=== PATIENT | female | born 1945 | race African-American/Black ===

== ENCOUNTER 2016-10-01 14:19 | Inpatient (IN) | payer MEDICARE, BC ==
[~2016-10-01] VITALS: Ht 160 cm; Wt 60.1 kg
[2016-10-01 15:04] LABS: BASO % 1 % (0-3); EOS # 0.1 x10^3/uL (0.0-0.7); EOS % 1 % (0-3); HEMATOCRIT 38.1 % (36.0-47.0); HEMOGLOBIN 12.7 g/dL (12.0-15.5); LYMPH # 1.1 x10^3/uL (1.0-4.8); LYMPH % 15 % (24-48); MEAN CORPUSCULAR HEMOGLOBIN 28 pg (25-35); MEAN CORPUSCULAR HGB CONC 33 g/dL (31-37); MEAN CORPUSCULAR VOLUME 84 fL (79-100); MONO # 0.6 x10^3/uL (0.0-1.1); MONO % 8 % (0-9); NEUT # 5.5 x10^3uL (1.8-7.7); NEUT % 75 % (31-73); PLATELET COUNT 205 x10^3/uL (140-400); RED BLOOD COUNT 4.56 x10^6/uL (3.50-5.40); RED CELL DISTRIBUTION WIDTH 14.2 % (11.5-14.5); WHITE BLOOD COUNT 7.4 x10^3/uL (4.0-11.0)
[2016-10-01 15:19] LABS: ALBUMIN 3.7 g/dL (3.4-5.0); ALBUMIN/GLOBULIN RATIO 0.8 (1.0-1.7); CALCIUM 9.1 mg/dL (8.5-10.1); CREATININE 0.9 mg/dL (0.6-1.0); GFR 74.5; MAGNESIUM 2.4 mg/dL (1.8-2.4); POTASSIUM 3.7 mmol/L (3.5-5.1); TOTAL BILIRUBIN 0.4 mg/dL (0.2-1.0); TOTAL PROTEIN 8.2 g/dL (6.4-8.2)
--- NOTE | 2016-10-01 15:32 | EKG ---
[address] [address] Test Date: 2016-10-01 Test Time: 14:50:18 Pat Name: DEMARCUS BASURTO Department: Room: Gender: F Mri Supervisor: : 1945 Requested By: AZALEA BRANTLEY Order Number: [id number] Reading MD: Silvino Menjivar Measurements Intervals [place] Rate: 68 P: 54 MO: 188 QRS: -5 QRSD: 78 T: 39 QT: 396 QTc: 426 Interpretive Statements SINUS RHYTHM Electronically Signed On 10-18-2016 9:50:26 CDT by Silvino Menjivar
[2016-10-01] MEDS ORDERED: OMEP40CA5 PO (15:43)
[2016-10-01] MEDS ORDERED: TRIA100A TP (15:43)
[2016-10-01] MEDS ORDERED: SERT50TA PO (15:43)
[2016-10-01] MEDS ORDERED: MIRT15TA3 PO (15:43)
[2016-10-01] MEDS ORDERED: BENA1TAB6 PO (15:43)
[2016-10-01] MEDS ORDERED: SIMV20TA PO (15:43)
[2016-10-01] MEDS ORDERED: DONE5TAB7 PO (15:43)
[2016-10-01] MEDS ORDERED: QUET25TA PO (15:43)
[2016-10-01] MEDS ORDERED: SITA100T PO (15:43)
[2016-10-01 15:48] LABS: BILIRUBIN,URINE NEG (NEG); CLARITY,URINE CLEAR; COLOR,URINE YELLOW; GLUCOSE,URINE NEG (NEG); NITRITE,URINE NEG (NEG); UROBILINOGEN,URINE 0.2 mg/dL (0.2 mg/dL)
[2016-10-01 15:49] LABS: BACTERIA,URINE 0 /HPF (0-FEW); RBC,URINE 0 /HPF (0-2); SQUAMOUS EPITHELIAL CELL,UR OCC /LPF
[2016-10-01] MEDS ORDERED: [UNRECOGNIZED DRUG - OTHER] (15:51)
--- NOTE | 2016-10-01 15:54 | PHYS DOC ---
Past History Past Medical History: Dementia, Diabetes, Hypertension Past Surgical History: Other Alcohol Use: None Drug Use: None Adult General Chief Complaint Chief Complaint: PSYCH EVALUATION HPI HPI Patient is a 70-year-old female brought to the ED by her daughter for [facility] unit clearance. Patient has already been accepted for evaluation and admission to the unit. Reportedly, the patient has had some agitated and aggressive behaviors. She has been thinking that her , who is , has been moving things around in her house. On my evaluation, the patient denies any complaints whatsoever. She denies any pain, denies appetite disturbances, denies GI complaints, denies swelling. Review of Systems Review of Systems Constitutional: Denies fever or chills [] HENT: Denies nasal congestion or sore throat [] Respiratory: Denies cough or shortness of breath [] Cardiovascular: Denies chest pain GI: Denies abdominal pain, nausea, vomiting, bloody stools or diarrhea [] : Denies dysuria or hematuria [] Musculoskeletal: Denies back pain or joint pain [] Integument: Denies rash or skin lesions [] Neurologic: Denies headache, focal weakness or sensory changes [] Allergies Allergies Allergies Coded Allergies Type Severity Reaction Last Updated Verified No Known Drug Allergies 10/01/16 No Physical Exam Physical Exam Constitutional: Well developed, well nourished, no acute distress, non-toxic appearance. Alert, mentating normally, warm and dry. HENT: Normocephalic, atraumatic, bilateral external ears normal, oropharynx moist, nose normal. [] Eyes: conjunctiva normal, no discharge. [] Neck: Normal range of motion, no stridor. [] Cardiovascular:Heart rate regular rhythm, no murmur [] Lungs & Thorax: Bilateral breath sounds clear to auscultation [] Abdomen: Bowel sounds normal, soft, no tenderness, no masses, no pulsatile masses. [] Skin: Warm, dry, no erythema, no rash. [] Extremities: No tenderness, no cyanosis, no clubbing, ROM intact, no edema. [] Neurologic: Alert, normal motor function, normal sensory function, no focal deficits noted. [] Current Patient Data Vital Signs Vital Signs Date Time Temp Pulse Resp B/P (MAP) Pulse Ox O2 Delivery O2 Flow Rate FiO2 10/01/16 14:35 98.3 72 20 98 Room Air Lab Results Laboratory Tests Test 10/01/16 14:20 10/01/16 14:37 10/01/16 15:15 White Blood Count 7.4 x10^3/uL (4.0-11.0) Red Blood Count 4.56 x10^6/uL (3.50-5.40) Hemoglobin 12.7 g/dL (12.0-15.5) Hematocrit 38.1 % (36.0-47.0) Mean Corpuscular Volume 84 fL (79-100) Mean Corpuscular Hemoglobin 28 pg (25-35) Mean Corpuscular Hemoglobin Concent 33 g/dL (31-37) Red Cell Distribution Width 14.2 % (11.5-14.5) Platelet Count 205 x10^3/uL (140-400) Neutrophils (%) (Auto) 75 % (31-73) H Lymphocytes (%) (Auto) 15 % (24-48) L Monocytes (%) (Auto) 8 % (0-9) Eosinophils (%) (Auto) 1 % (0-3) Basophils (%) (Auto) 1 % (0-3) Neutrophils # (Auto) 5.5 x10^3uL (1.8-7.7) Lymphocytes # (Auto) 1.1 x10^3/uL (1.0-4.8) Monocytes # (Auto) 0.6 x10^3/uL (0.0-1.1) Eosinophils # (Auto) 0.1 x10^3/uL (0.0-0.7) Basophils # (Auto) 0.0 x10^3/uL (0.0-0.2) Sodium Level 141 mmol/L (136-145) Potassium Level 3.7 mmol/L (3.5-5.1) Chloride Level 104 mmol/L (98-107) Carbon Dioxide Level 31 mmol/L (21-32) Anion Gap 6 (6-14) Blood Urea Nitrogen 13 mg/dL (7-20) Creatinine 0.9 mg/dL (0.6-1.0) Estimated GFR (Cockcroft-Gault) 74.5 BUN/Creatinine Ratio 14 (6-20) Glucose Level 84 mg/dL (70-99) Calcium Level 9.1 mg/dL (8.5-10.1) Magnesium Level 2.4 mg/dL (1.8-2.4) Total Bilirubin 0.4 mg/dL (0.2-1.0) Aspartate Amino Transferase (AST) 21 U/L (15-37) Alanine Aminotransferase (ALT) 22 U/L (14-59) Alkaline Phosphatase 114 U/L (46-116) Total Protein 8.2 g/dL (6.4-8.2) Albumin 3.7 g/dL (3.4-5.0) Albumin/Globulin Ratio 0.8 (1.0-1.7) L Urine Collection Type Unknown Urine Color Yellow Urine Clarity Clear Urine pH 5.5 Urine Specific [place] 1.025 Urine Protein 30 mg/dl (NEG-TRACE) Urine Glucose (UA) Neg mg/dL (NEG) Urine Ketones (Stick) Neg mg/dL (NEG) Urine Blood Neg (NEG) Urine Nitrite Neg (NEG) Urine Bilirubin Neg (NEG) Urine Urobilinogen Dipstick 0.2 mg/dL (0.2 mg/dL) Urine Leukocyte Esterase Neg (NEG) Urine RBC 0 /HPF (0-2) Urine WBC 1-4 /HPF (0-4) Urine Squamous Epithelial Cells Occ /LPF Urine Bacteria 0 /HPF (0-FEW) Urine Mucus Mod /LPF EKG EKG 12-lead EKG read by me. Sinus rhythm. Heart rate 68. There are no acute ST or T wave changes indicative of ischemia or infarction. No STEMI. No rhythm disturbances. 1450 [] Radiology/Procedures Radiology/Procedures [] Course & Med Decision Making Course & Med Decision Making Pertinent Labs and Imaging studies reviewed. (See chart for details) 70-year-old female comes to the ED for medical clearance for behavioral health. Patient did not display any concerning behaviors in the ED. She rested comfortably and visited with her daughter. She ambulated to the restroom to give us a urine sample. Labs, urinalysis, EKG are within normal limits. Patient is cleared [facility] EMS is here to transport her. [] Dragon Disclaimer Dragon Disclaimer This chart was dictated in whole or in part using Voice Recognition software in a busy, high-work load, and often noisy Emergency Department environment. It may contain unintended and wholly unrecognized errors or omissions. Departure Departure: Impression: Primary Impression: Dementia with behavioral disturbance Disposition: ADMITTED INPATIENT Condition: STABLE Referrals: PCP,UNKNOWN (PCP) AZALEA BRANTLEY MD Oct 01, 2016 15:54
[2016-10-01 16:45] VITALS: BP 168/79
[2016-10-01] MEDS ORDERED: ACETAMINOPHEN 325 MG TABLET PO PRN (17:00)
[2016-10-01] MEDS ORDERED: METHYL SALICYLATE/MENTHOL TOPICAL OINTMENT 29GM TUBE. TP PRN (17:00)
[2016-10-01] MEDS ORDERED: MAGNESIUM HYDROXIDE 2,400 MG/30 ML ORAL.SUSP. PO PRN (17:00)
[2016-10-01] MEDS ORDERED: MAG HYDROX/AL HYDROX/SIMETH 30 ML ORAL.SUSP PO PRN (17:00)
[2016-10-01] MEDS ORDERED: QUET25TA5 PO (17:17)
--- NOTE | 2016-10-01 19:15 | RAD ---
CT HEAD WO CONTRAST dated 10/01/2016 6:44 PM Indication: Mental status change., Change in mental statusChange in mental status. No previous studies for comparison. Comparison: No comparison is available. Technique: Contiguous axial imaging the head was performed from skull base to vertex. One or more of the following individualized dose reduction techniques were utilized for this examination: 1. Automated exposure control 2. Adjustment of the mA and/or kV according to patient size 3. Use of iterative reconstruction technique Findings: Ventricles and sulci are mildly prominent for age. No midline shift or mass effect. Minimal patchy low density in the deep/subcortical periventricular white matter. No hemorrhage or extra-axial collection. Posterior fossa and brainstem unremarkable. Visualized paranasal sinuses and mastoid air cells are clear. No acute calvarial abnormality. IMPRESSION: 1. No evidence of acute intracranial hemorrhage or mass. 2. Mild chronic small vessel ischemic changes and atrophy. Electronically signed by: Maxi Staley MD (10/01/2016 7:12 PM) [facility]
--- NOTE | 2016-10-01 19:54 | PDOC ---
Exam Pradip Demential Exam: Pradip Note: Please also refer to the separate dictated note~for this date of service dictated separately.~Patient seen individually. Discussed the patient with Nursing staff reviewed the chart.~Reviewed interim history and current functioning. Reviewed vital signs,~Labs/ Radiology~and current medications noted below. Continue current treatment with the changes noted in the dictated addendum note Assessment: Vital Signs: Vital Signs Date Time Temp Pulse Resp B/P (MAP) Pulse Ox O2 Delivery O2 Flow Rate FiO2 10/01/16 16:45 97.5 70 18 168/79 (108) 98 10/01/16 14:35 Room Air Labs: Laboratory Tests Test 10/01/16 14:20 10/01/16 14:37 10/01/16 15:15 White Blood Count 7.4 x10^3/uL (4.0-11.0) Red Blood Count 4.56 x10^6/uL (3.50-5.40) Hemoglobin 12.7 g/dL (12.0-15.5) Hematocrit 38.1 % (36.0-47.0) Mean Corpuscular Volume 84 fL (79-100) Mean Corpuscular Hemoglobin 28 pg (25-35) Mean Corpuscular Hemoglobin Concent 33 g/dL (31-37) Red Cell Distribution Width 14.2 % (11.5-14.5) Platelet Count 205 x10^3/uL (140-400) Neutrophils (%) (Auto) 75 % (31-73) H Lymphocytes (%) (Auto) 15 % (24-48) L Monocytes (%) (Auto) 8 % (0-9) Eosinophils (%) (Auto) 1 % (0-3) Basophils (%) (Auto) 1 % (0-3) Neutrophils # (Auto) 5.5 x10^3uL (1.8-7.7) Lymphocytes # (Auto) 1.1 x10^3/uL (1.0-4.8) Monocytes # (Auto) 0.6 x10^3/uL (0.0-1.1) Eosinophils # (Auto) 0.1 x10^3/uL (0.0-0.7) Basophils # (Auto) 0.0 x10^3/uL (0.0-0.2) Sodium Level 141 mmol/L (136-145) Potassium Level 3.7 mmol/L (3.5-5.1) Chloride Level 104 mmol/L (98-107) Carbon Dioxide Level 31 mmol/L (21-32) Anion Gap 6 (6-14) Blood Urea Nitrogen 13 mg/dL (7-20) Creatinine 0.9 mg/dL (0.6-1.0) Estimated GFR (Cockcroft-Gault) 74.5 BUN/Creatinine Ratio 14 (6-20) Glucose Level 84 mg/dL (70-99) Calcium Level 9.1 mg/dL (8.5-10.1) Magnesium Level 2.4 mg/dL (1.8-2.4) Total Bilirubin 0.4 mg/dL (0.2-1.0) Aspartate Amino Transferase (AST) 21 U/L (15-37) Alanine Aminotransferase (ALT) 22 U/L (14-59) Alkaline Phosphatase 114 U/L (46-116) Total Protein 8.2 g/dL (6.4-8.2) Albumin 3.7 g/dL (3.4-5.0) Albumin/Globulin Ratio 0.8 (1.0-1.7) L Urine Collection Type Unknown Urine Color Yellow Urine Clarity Clear Urine pH 5.5 Urine Specific [place] 1.025 Urine Protein 30 mg/dl (NEG-TRACE) Urine Glucose (UA) Neg mg/dL (NEG) Urine Ketones (Stick) Neg mg/dL (NEG) Urine Blood Neg (NEG) Urine Nitrite Neg (NEG) Urine Bilirubin Neg (NEG) Urine Urobilinogen Dipstick 0.2 mg/dL (0.2 mg/dL) Urine Leukocyte Esterase Neg (NEG) Urine RBC 0 /HPF (0-2) Urine WBC 1-4 /HPF (0-4) Urine Squamous Epithelial Cells Occ /LPF Urine Bacteria 0 /HPF (0-FEW) Urine Mucus Mod /LPF Current Medications: Meds: Current Medications Acetaminophen (Tylenol) 650 mg PRN Q6HRS PRN PO PAIN / TEMP; Start 10/01/16 at 17:00 Multi-Ingredient Ointment (Analgesic Bacova) 1 allison PRN QID PRN TP MUSCLE PAIN; Start 10/01/16 at 17:00 Al Hydroxide/Mg Hydroxide (Mylanta Plus Xs) 15 ml PRN AFTMEALHC PRN PO DYSPEPSIA; Start 10/01/16 at 17:00 Magnesium Hydroxide (Milk Of Magnesia) 2,400 mg PRN QHS PRN PO CONSTIPATION; Start 10/01/16 at 17:00 Donepezil HCl (Aricept) 2.5 mg HS PO ; Start 10/01/16 at 21:00; Stop 10/01/16 at 21:00; Status DC Mirtazapine (Remeron) 15 mg HS PO ; Start 10/01/16 at 21:00 Quetiapine Fumarate (SEROquel) 12.5 mg DAILY PO ; Start 10/02/16 at 09:00 Sertraline HCl (Zoloft) 50 mg DAILY PO ; Start 10/02/16 at 09:00 Memantine (Namenda) 5 mg DAILY PO ; Start 10/02/16 at 09:00; Stop 10/05/16 at 08 :59 Memantine (Namenda) 5 mg BID PO ; Start 10/05/16 at 21:00 Donepezil HCl (Aricept) 10 mg DAILY PO ; Start 10/02/16 at 09:00 Olanzapine (ZyPREXA ZYDIS) 2.5 mg PRN Q2HR PRN PO PSYCHOSIS; Start 10/01/16 at 18:45 Active Scripts Active Reported Seroquel (Quetiapine Fumarate) 25 Mg Tablet 12.5 Mg PO DAILY [Hycomine compound] 1 Tab DAILY Kenalog (Triamcinolone Acetonide) 100 Gm Aerosol 1 Allison TP PRN DAILY PRN Januvia (Sitagliptin Phosphate) 100 Mg Tablet 100 Mg PO DAILY Zocor (Simvastatin) 20 Mg Tablet 20 Mg PO HS Zoloft (Sertraline Hcl) 50 Mg Tablet 50 Mg PO DAILY Quetiapine Fumarate 25 Mg Tablet 25 Mg PO HS Omeprazole 40 Mg Capsule.dr 40 Mg PO DAILY Mirtazapine 15 Mg Tablet 15 Mg PO HS Donepezil Hcl 5 Mg Tablet 2.5 Mg PO HS Benazepril-Hctz 20-12.5 Mg Tab (Benazepril/Hydrochlorothiazide) 1 Each Tablet 1 Tab PO DAILY Diagnosis: Problems: (1) Dementia with behavioral disturbance (2) Anxiety disorder (3) Dementia, vascular, with delusions (4) Dementia, vascular, with 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
[2016-10-01] MEDS: MIRTAZAPINE 15 MG TABLET PO SCH (20:44)
[2016-10-01] MEDS ORDERED: DONEPEZIL HCL 5 MG TABLET. PO SCH (21:00)
[2016-10-02 03:21] LABS: HEMOGLOBIN A1C 6.2 % (4.8-5.6); T3 TOTAL 105 ng/dL (71-180); THYROXINE 7.2 ug/dL (4.5-12.0)
--- NOTE | 2016-10-02 03:58 | ACF ---
Admission Criteria Forms PSYCHIATRIC DISORDERS Clinical Indications for Inpatient Care (Place 'X' for any and all applicable criteria): Ongoing inpatient care may be needed for 1 or more of the following(1)(2)(3)(4)( 6)(7)(8): [ ]I. Danger to self or others not manageable at lower level of care. [ ]II. Grave disability (eg, inability to perform self care necessary at lower level of care) [ ]III. Agitation or inappropriate behavior interfering with care for primary condition (eg, attempting to discontinue lines or drains prematurely, unable to cooperate with respiratory care) [x]IV. Severe disability or disorder indicated by ALL of the following: [x]a) Severe behavioral health disorder-related symptoms or condition indicated by 1 or more of the following: [ ]i) Severe problem with cognition, memory, judgment, or impulse control [x]ii) Severe clinical manifestations (eg, hallucinations, delusions, other acute psychotic symptoms, eduardo, extreme agitation or anxiety) [x]b) Patient management at lower level of care is not feasible until acute intervention or modification is initiated. Extended stay beyond goal length of stay for the primary condition may be needed untilALLof the following are present(1)(2)(3)(4)(722)(23): [ ]a) Danger to self or others is absent or manageable at lower level of care [ ]b) Behavior crisis management, including physical or chemical restraints, is required and is not available at a lower level of care. [ ]c) Behavioral symptoms (e.g., agitation, somnolence, inappropriate behavior) are present, and are not manageable at a lower level of care. [ ]d) Patient cannot understand follow-up treatment and crisis plan. [ ]e) Provider and supports are sufficiently available at lower level of care. [ ]f) Patient can participate (e.g., verify absence of plan for harm) and is in needed of monitoring. The original [facility] [employer] [employer] content created by [employer] [employer] has been revised. The portions of the content which have been revised are identified through the use of italic text, and [employer] has neither reviewed nor approved the modified material. All other unmodified content is copyright [facility] [employer]. Please see references footnoted in the original [facility] edition 2015 Admission Criteria Met?: Yes NIKKI HWANG Oct 02, 2016 03:58
[2016-10-02 05:35] VITALS: BP 173/86
--- NOTE | 2016-10-02 05:58 | PDOC1 ---
History of Present Illness Reason for Visit: Abnormal behaviors History of Present Illness Pt sent to [facility] for evaluation of abnormal behaviors. According to the record, she had been increasingly paranoid and acting out towards her daughters. SHe lives by herself and her some time ago. She has a hx of DM , HTN, HPL, and reportedly a distant hx of SDH after a fall. She was examined on rounds and found to be pleasant though confused. SHe is not a reliable historian. Per nursing she has not had any recent issues. Chief Complaint: PSYCH EVALUATION Allergies: Coded Allergies: No Known Drug Allergies (Unverified , 10/01/16) Past Medical History Cardiac: HTN, hyperipidemia Endocrine: Diabetes Past Surgical History: No pertinent history Family History: No pertinent hx Past Social History Smoke: No Alcohol: none Drugs: None Lives: Alone Review of Systems Review Of Systems ROS is unobtainable due to pt's mental state. Allergies: Coded Allergies: No Known Drug Allergies (Unverified , 10/01/16) Medications Current Medications Acetaminophen (Tylenol) 650 mg PRN Q6HRS PRN PO PAIN / TEMP; Start 10/01/16 at 17:00 Multi-Ingredient Ointment (Analgesic [place]) 1 allison PRN QID PRN TP MUSCLE PAIN; Start 10/01/16 at 17:00 Al Hydroxide/Mg Hydroxide (Mylanta Plus Xs) 15 ml PRN AFTMEALHC PRN PO DYSPEPSIA; Start 10/01/16 at 17:00 Magnesium Hydroxide (Milk Of Magnesia) 2,400 mg PRN QHS PRN PO CONSTIPATION; Start 10/01/16 at 17:00 Donepezil HCl (Aricept) 2.5 mg HS PO ; Start 10/01/16 at 21:00; Stop 10/01/16 at 21:00; Status DC Mirtazapine (Remeron) 15 mg HS PO Last administered on 10/01/16t 20:44; Start 10/01/16 at 21:00 Quetiapine Fumarate (SEROquel) 12.5 mg DAILY PO ; Start 10/02/16 at 09:00 Sertraline HCl (Zoloft) 50 mg DAILY PO ; Start 10/02/16 at 09:00 Memantine (Namenda) 5 mg DAILY PO ; Start 10/02/16 at 09:00; Stop 10/05/16 at 08 :59 Memantine (Namenda) 5 mg BID PO ; Start 10/05/16 at 21:00 Donepezil HCl (Aricept) 10 mg DAILY PO ; Start 10/02/16 at 09:00 Olanzapine (ZyPREXA ZYDIS) 2.5 mg PRN Q2HR PRN PO PSYCHOSIS; Start 10/01/16 at 18:45 Active Scripts Active Reported Seroquel (Quetiapine Fumarate) 25 Mg Tablet 12.5 Mg PO DAILY [Hycomine compound] 1 Tab DAILY Kenalog (Triamcinolone Acetonide) 100 Gm Aerosol 1 Allison TP PRN DAILY PRN Januvia (Sitagliptin Phosphate) 100 Mg Tablet 100 Mg PO DAILY Zocor (Simvastatin) 20 Mg Tablet 20 Mg PO HS Zoloft (Sertraline Hcl) 50 Mg Tablet 50 Mg PO DAILY Quetiapine Fumarate 25 Mg Tablet 25 Mg PO HS Omeprazole 40 Mg Capsule.dr 40 Mg PO DAILY Mirtazapine 15 Mg Tablet 15 Mg PO HS Donepezil Hcl 5 Mg Tablet 2.5 Mg PO HS Benazepril-Hctz 20-12.5 Mg Tab (Benazepril/Hydrochlorothiazide) 1 Each Tablet 1 Tab PO DAILY Exam Vital Signs Vital Signs Date Time Temp Pulse Resp B/P (MAP) Pulse Ox O2 Delivery O2 Flow Rate FiO2 10/02/16 05:35 98.1 73 16 173/86 (115) 98 Room Air General Appearance: Alert, Cooperative, No acute distress HEENT: Atraumatic, PERRLA, EOMI, Mucous membr. moist/pink, Other (Neck supple, no JVD, no LAD) Respiratory: Clear to auscultation, Normal air movement Heart: Regular rate, Normal S1, Normal S2, No murmurs Abdominal: Normal bowel sounds, Soft, No tenderness, No hepatospenomegaly Extremities: No edema, Normal pulses Skin: No rashes Neuro: Normal gait, Normal speech, Normal tone, Cranial nerves 3-12 NL Psych/Mental Status: Mental status NL, Mood NL Assessment/Plan Assessment/Plan 1. Dementia w/ behavioral disturbances: Per Dr. Kaur. 2. DM: Continue home meds, follow sugars. 3. HTN: MOnitor vitals, cont home meds. 4. HPL: Cont meds. 5. DVT proph: Not indicated, pt fully ambulatory. COURSE Allergies Coded Allergies Type Severity Reaction Last Updated Verified No Known Drug Allergies 10/01/16 No Laboratory Tests Test 10/01/16 14:20 10/01/16 14:37 10/01/16 14:45 10/01/16 15:15 White Blood Count 7.4 x10^3/uL (4.0-11.0) Red Blood Count 4.56 x10^6/uL (3.50-5.40) Hemoglobin 12.7 g/dL (12.0-15.5) Hematocrit 38.1 % (36.0-47.0) Mean Corpuscular Volume 84 fL (79-100) Mean Corpuscular Hemoglobin 28 pg (25-35) Mean Corpuscular Hemoglobin Concent 33 g/dL (31-37) Red Cell Distribution Width 14.2 % (11.5-14.5) Platelet Count 205 x10^3/uL (140-400) Neutrophils (%) (Auto) 75 % (31-73) Lymphocytes (%) (Auto) 15 % (24-48) Monocytes (%) (Auto) 8 % (0-9) Eosinophils (%) (Auto) 1 % (0-3) Basophils (%) (Auto) 1 % (0-3) Neutrophils # (Auto) 5.5 x10^3uL (1.8-7.7) Lymphocytes # (Auto) 1.1 x10^3/uL (1.0-4.8) Monocytes # (Auto) 0.6 x10^3/uL (0.0-1.1) Eosinophils # (Auto) 0.1 x10^3/uL (0.0-0.7) Basophils # (Auto) 0.0 x10^3/uL (0.0-0.2) Sodium Level 141 mmol/L (136-145) Potassium Level 3.7 mmol/L (3.5-5.1) Chloride Level 104 mmol/L (98-107) Carbon Dioxide Level 31 mmol/L (21-32) Anion Gap 6 (6-14) Blood Urea Nitrogen 13 mg/dL (7-20) Creatinine 0.9 mg/dL (0.6-1.0) Estimated GFR (Cockcroft-Gault) 74.5 BUN/Creatinine Ratio 14 (6-20) Glucose Level 84 mg/dL (70-99) Calcium Level 9.1 mg/dL (8.5-10.1) Magnesium Level 2.4 mg/dL (1.8-2.4) Total Bilirubin 0.4 mg/dL (0.2-1.0) Aspartate Amino Transf (AST/SGOT) 21 U/L (15-37) Alanine Aminotransferase (ALT/SGPT) 22 U/L (14-59) Alkaline Phosphatase 114 U/L (46-116) Total Protein 8.2 g/dL (6.4-8.2) Albumin 3.7 g/dL (3.4-5.0) Albumin/Globulin Ratio 0.8 (1.0-1.7) Hemoglobin A1c 6.2 % (4.8-5.6) Thyroxine (T4) 7.2 ug/dL (4.5-12.0) Total Triiodothyronine 105 ng/dL (71-180) Urine Collection Type Unknown Urine Color Yellow Urine Clarity Clear Urine pH 5.5 Urine Specific [place] 1.025 Urine Protein 30 mg/dl (NEG-TRACE) Urine Glucose (UA) Neg mg/dL (NEG) Urine Ketones (Stick) Neg mg/dL (NEG) Urine Blood Neg (NEG) Urine Nitrite Neg (NEG) Urine Bilirubin Neg (NEG) Urine Urobilinogen Dipstick 0.2 mg/dL (0.2 mg/dL) Urine Leukocyte Esterase Neg (NEG) Urine RBC 0 /HPF (0-2) Urine WBC 1-4 /HPF (0-4) Urine Squamous Epithelial Cells Occ /LPF Urine Bacteria 0 /HPF (0-FEW) Urine Mucus Mod /LPF Current Medications Medications (Trade) Dose Ordered Sig/Hoda Route PRN Reason Start Time Stop Time Status Last Admin Dose Admin Acetaminophen (Tylenol) 650 mg PRN Q6HRS PRN PO PAIN / TEMP 10/01/16 17:00 Multi-Ingredient Ointment (Analgesic [place]) 1 allison PRN QID PRN TP MUSCLE PAIN 10/01/16 17:00 Al Hydroxide/Mg Hydroxide (Mylanta Plus Xs) 15 ml PRN AFTMEALHC PRN PO DYSPEPSIA 10/01/16 17:00 Magnesium Hydroxide (Milk Of Magnesia) 2,400 mg PRN QHS PRN PO CONSTIPATION 10/01/16 17:00 Donepezil HCl (Aricept) 2.5 mg HS PO 10/01/16 21:00 10/01/16 21:00 DC Mirtazapine (Remeron) 15 mg HS PO 10/01/16 21:00 10/01/16 20:44 Quetiapine Fumarate (SEROquel) 12.5 mg DAILY PO 10/02/16 09:00 Sertraline HCl (Zoloft) 50 mg DAILY PO 10/02/16 09:00 Memantine (Namenda) 5 mg DAILY PO 10/02/16 09:00 10/05/16 08:59 Memantine (Namenda) 5 mg BID PO 10/05/16 21:00 Donepezil HCl (Aricept) 10 mg DAILY PO 10/02/16 09:00 Olanzapine (ZyPREXA ZYDIS) 2.5 mg PRN Q2HR PRN PO PSYCHOSIS 10/01/16 18:45 I & O 10/02/16 00:00 Intake Total 360 ml Balance 360 ml Vital Signs Date Time Temp Pulse Resp B/P (MAP) Pulse Ox O2 Delivery O2 Flow Rate FiO2 10/02/16 05:35 98.1 73 16 173/86 (115) [address] HEAD WO CONTRAST dated 10/01/2016 6:44 PM Indication: Mental status change., Change in mental statusChange in mental status. No previous studies for comparison. Comparison: No comparison is available. Technique: Contiguous axial imaging the head was performed from skull base to vertex. One or more of the following individualized dose reduction techniques were utilized for this examination: 1. Automated exposure control 2. Adjustment of the mA and/or kV according to patient size 3. Use of iterative reconstruction technique Findings: Ventricles and sulci are mildly prominent for age. No midline shift or mass effect. Minimal patchy low density in the deep/subcortical periventricular white matter. No hemorrhage or extra-axial collection. Posterior fossa and brainstem unremarkable. Visualized paranasal sinuses and mastoid air cells are clear. No acute calvarial abnormality. IMPRESSION: 1. No evidence of acute intracranial hemorrhage or mass. 2. Mild chronic small vessel ischemic changes and atrophy. FRANCES CARRILLO MD Oct 02, 2016 05:58
[2016-10-02] MEDS: LINAGLIPTIN 5 MG TABLET PO SCH (07:56)
[2016-10-02] MEDS: MEMANTINE 5 MG TABLET. PO SCH (07:56)
[2016-10-02] MEDS: MIRTAZAPINE 15 MG TABLET PO SCH (07:57)
[2016-10-02] MEDS: hydroCHLOROthiazide 12.5 MG CAPSULE PO SCH (07:57)
[2016-10-02] MEDS: LISINOPRIL 20 MG TABLET PO SCH (07:57)
[2016-10-02] MEDS: SERTRALINE 50 MG TABLET. PO SCH (07:58)
[2016-10-02] MEDS: QUEtiapine 25 MG TABLET. PO SCH (07:58)
[2016-10-02] MEDS: DONEPEZIL HCL 10 MG TABLET PO SCH (07:58)
[2016-10-02] MEDS: PANTOPRAZOLE 40 MG TABLET. PO SCH (07:58)
[2016-10-02] MEDS ORDERED: TRIAMCINOLONE ACETONIDE 0.1% TOPICAL CREAM 15GM TUBE. TP PRN (09:00)
[2016-10-02] MEDS ORDERED: NON FORMULARY ITEM (Benazepril/Hydrochlorothiazide (Benazepril-Hctz 20-12.5 Mg Tab) 1 TAB) PO SCH (09:00)
[2016-10-02] MEDS ORDERED: [UNRECOGNIZED DRUG - OTHER] SCH (09:00)
--- NOTE | 2016-10-02 12:08 | HP ---
ADMIT DATE: 10/01/2016 PSYCHIATRIC ADMISSION HISTORY/EVALUATION The patient was seen in the evening of 10/01/2016 for this evaluation and I had previously discussed with the nursing staff regarding the patient's referral for inpatient psychiatric stabilization from primary care physician, Dr. Ambrosio. IDENTIFYING DATA: The patient is a 70-year-old Afro-Surinamese female referred by Dr. Charles her primary care physician on account of increasing confusion and being aggressive, both verbally and physically towards her daughters. She has been delusional, believes her has been moving her purse. She has been paranoid, suspicious, anxious, attacking the daughter, but lunging at her daughter, snatching and scratching the daughter. Symptoms have been worsening for the past several months, much worse in the past few days, resulting in this referral for inpatient psychiatric stabilization due to dangerous, out of control behaviors and failure of outpatient psychiatric interventions. CHIEF COMPLAINT: "They tricked me into coming here." The patient is very angry at her daughters for bringing here. She repeatedly stated during our interview that she cared for her for several years before he since he suffered a subdural hematoma and she resents the fact that her daughters have placed her at this facility and looking at having her in a intermediate. HISTORY OF PRESENT ILLNESS: The patient has a history of aggressive dementia, Alzheimer's vascular type. She has been residing at home in [place], [place] following outpatient with her primary care physician. More recently as noted above, she has been getting paranoid; delusional; suspicious; having sleep and appetite changes; marked aggression towards her daughters consequent to her paranoia. No active suicidal or homicidal ideation. Family feels she will need placement as does the primary care physician according to the information related to me by the nursing staff. No history of bipolar disorder. PAST PSYCHIATRIC HISTORY: As above. MEDICAL HISTORY: Positive for diabetes mellitus, hypertension, hyperlipidemia, history of subdural hematoma consequent to a fall from a chair in 1999. It is unclear to me whether the patient believes that her suffered from a subdural hematoma as her confusion about her own. CT head is unremarkable for any acute changes. DRUG ALLERGIES: Negative. CURRENT PSYCHOTROPICS: Aricept 2.5 mg at bedtime, Remeron 15 mg at bedtime, Zoloft 50 mg a day, Seroquel 12.5 mg in the morning and 25 mg at night. This has previously been discontinued in April and then restarted recently. FAMILY HISTORY: Noncontributory. SOCIAL HISTORY: No alcohol, drug abuse, physical, sexual or elder abuse history is noted. She is not known to be a perpetrator. According to the primary care physician, the patient has never been a smoker. She does have a history of falls. MENTAL STATUS EXAM: The patient was seen individually evening of 10/01/2016. She is oriented to herself and situation, felt the year was 2015, month was October. She was unable to do serial 7s, able to spell world forward and backward with great effort, but accurately. Insight, judgment, recent memory is impaired. Language function intact. Attention span short. She was quite paranoid, suspicious, frequently looking away believing this was a scheme to get her trapped in the hospital and placement which she resented. No active suicidal or homicidal ideation. LABORATORY DATA: Reviewed. REVIEW OF SYSTEMS: No CV, , eye, ENT or pulmonary system symptoms on review. Reliability poor. IMPRESSION: Major neurocognitive disorder, probably vascular, Alzheimer's with depression, delusion, behavioral disturbance; anxiety disorder, unspecified; impulse control disorder, unspecified. Rest as above. PLAN: Admit to the Geropsychiatry Unit at [facility]. I will see the patient daily individually from a psychiatric standpoint. Medical followup per Dr. Ryan/Dr. Villarreal. Continue the patient on her current psychotropics. Increase Aricept to 10 mg a day and start Namenda 5 mg daily, increasing in 3 days to 5 mg twice a day. Consider increasing Zoloft and/or Seroquel or considering Risperdal if psychotic symptoms are prominent and BuSpar for anxiety, Depakote as a mood stabilizer, but we will have to make all those decisions depending on how she does with the initial changes. PATRICK VELAZQUEZ MD DR: VIRGINIE/madeleine JOB#: [id number] / [id number]
[2016-10-02 16:25] VITALS: BP 124/71
[2016-10-02] MEDS: SIMVASTATIN 20 MG TABLET PO SCH (19:46)
--- NOTE | 2016-10-02 23:13 | PDOC ---
Exam Pradip Demential Exam: Pradip Note: Please also refer to the separate dictated note~for this date of service dictated separately.~Patient seen individually. Discussed the patient with Nursing staff reviewed the chart.~Reviewed interim history and current functioning. Reviewed vital signs,~Labs/ Radiology~and current medications noted below. Continue current treatment with the changes noted in the dictated addendum note Assessment: Vital Signs: Vital Signs Date Time Temp Pulse Resp B/P (MAP) Pulse Ox O2 Delivery O2 Flow Rate FiO2 10/02/16 16:25 98.7 71 18 124/71 (88) 99 10/02/16 05:35 Room Air I&O Intake and Output 10/02/16 07:00 Intake Total 480 ml Balance 480 ml Intake Oral 480 ml Labs: Laboratory Tests Test 10/02/16 08:01 Glucose (Fingerstick) 86 mg/dL (70-99) Current Medications: Meds: Current Medications Acetaminophen (Tylenol) 650 mg PRN Q6HRS PRN PO PAIN / TEMP; Start 10/01/16 at 17:00 Multi-Ingredient Ointment (Analgesic [place]) 1 allison PRN QID PRN TP MUSCLE PAIN; Start 10/01/16 at 17:00 Al Hydroxide/Mg Hydroxide (Mylanta Plus Xs) 15 ml PRN AFTMEALHC PRN PO DYSPEPSIA; Start 10/01/16 at 17:00 Magnesium Hydroxide (Milk Of Magnesia) 2,400 mg PRN QHS PRN PO CONSTIPATION; Start 10/01/16 at 17:00 Donepezil HCl (Aricept) 2.5 mg HS PO ; Start 10/01/16 at 21:00; Stop 10/01/16 at 21:00; Status DC Mirtazapine (Remeron) 15 mg HS PO Last administered on 10/02/16 07:57; Start 10/01/16 at 21:00 Quetiapine Fumarate (SEROquel) 12.5 mg DAILY PO Last administered on 10/02/16 07:58; Start 10/02/16 at 09:00 Sertraline HCl (Zoloft) 50 mg DAILY PO Last administered on 10/02/16 07:58; Start 10/02/16 at 09:00 Memantine (Namenda) 5 mg DAILY PO Last administered on 10/02/16 07:56; Start 10/02/16 at 09:00; Stop 10/05/16 at 08:59 Memantine (Namenda) 5 mg BID PO ; Start 10/05/16 at 21:00 Donepezil HCl (Aricept) 10 mg DAILY PO Last administered on 10/02/16 07:58; Start 10/02/16 at 09:00 Olanzapine (ZyPREXA ZYDIS) 2.5 mg PRN Q2HR PRN PO PSYCHOSIS; Start 10/01/16 at 18:45 Simvastatin (Zocor) 20 mg HS PO Last administered on 10/02/16 19:46; Start 02/06 at 21:00 Non-Formulary Medication 1 tab DAILY PO ; Start 10/02/16 at 09:00; Status UNV Pantoprazole Sodium (Protonix) 40 mg DAILYAC PO Last administered on 10/02/16 07:58; Start 10/02/16 at 07:30 Linagliptin (Tradjenta) 5 mg DAILY PO Last administered on 10/02/16 07:56; Start 10/02/16 at 09:00 Triamcinolone Acetonide (Kenalog) 1 allison PRN DAILY PRN TP small amt to ears; Start 10/02/16 at 09:00 Non-Formulary Medication 1 tab DAILY .ROUTE ; Start 10/02/16 at 09:00; Status UNV Lisinopril (Prinivil) 20 mg DAILY PO Last administered on 10/02/16 07:57; Start 10/02/16 at 09:00 Hydrochlorothiazide (Microzide) 12.5 mg DAILY PO Last administered on 07:57; Start 10/02/16 at 09:00 Active Scripts Active Reported Seroquel (Quetiapine Fumarate) 25 Mg Tablet 12.5 Mg PO DAILY [Hycomine compound] 1 Tab DAILY Kenalog (Triamcinolone Acetonide) 100 Gm Aerosol 1 Allison TP PRN DAILY PRN Januvia (Sitagliptin Phosphate) 100 Mg Tablet 100 Mg PO DAILY Zocor (Simvastatin) 20 Mg Tablet 20 Mg PO HS Zoloft (Sertraline Hcl) 50 Mg Tablet 50 Mg PO DAILY Quetiapine Fumarate 25 Mg Tablet 25 Mg PO HS Omeprazole 40 Mg Capsule.dr 40 Mg PO DAILY Mirtazapine 15 Mg Tablet 15 Mg PO HS Donepezil Hcl 5 Mg Tablet 2.5 Mg PO HS Benazepril-Hctz 20-12.5 Mg Tab (Benazepril/Hydrochlorothiazide) 1 Each Tablet 1 Tab PO DAILY Diagnosis: Problems: (1) Dementia with behavioral disturbance (2) Anxiety disorder (3) Dementia, vascular, with delusions (4) Dementia, vascular, with depression (5) Dementia in Alzheimer's disease with delusions (6) Dementia in Alzheimer's disease with depression (7) Impulse control disorder PATRICK VELAZQUEZ MD Oct 02, 2016 23:13
[2016-10-03 06:15] VITALS: BP 167/90
[2016-10-03] MEDS: QUEtiapine 25 MG TABLET. PO SCH (07:49)
[2016-10-03] MEDS: SERTRALINE 50 MG TABLET. PO SCH (07:49)
[2016-10-03] MEDS: MEMANTINE 5 MG TABLET. PO SCH (07:50)
[2016-10-03] MEDS: DONEPEZIL HCL 10 MG TABLET PO SCH (07:50)
[2016-10-03] MEDS: LINAGLIPTIN 5 MG TABLET PO SCH (07:50)
[2016-10-03] MEDS: hydroCHLOROthiazide 12.5 MG CAPSULE PO SCH (07:50)
[2016-10-03] MEDS: LISINOPRIL 20 MG TABLET PO SCH (07:50)
[2016-10-03] MEDS: PANTOPRAZOLE 40 MG TABLET. PO SCH (07:50)
[2016-10-03 17:25] VITALS: BP 117/83
[2016-10-03] MEDS: SIMVASTATIN 20 MG TABLET PO SCH (20:13)
[2016-10-03] MEDS: MIRTAZAPINE 15 MG TABLET PO SCH (20:13)
--- NOTE | 2016-10-03 20:14 | PN ---
DATE: 10/02/2016 This is a late entry for 10/02/2016 and covers elements not covered in my initial note of 10/02/2016. I meet with the patient in the evening of 10/02/2016. The patient remains quite forgetful, then seemed to remember me from the day before. She presents on the surface as if she is much less confused than she truly is. The patient is compliant with her medications. CT head shows atrophy and no acute changes. REVIEW OF SYSTEMS: No CV, , pulmonary, eye, ENT system symptoms on review. MENTAL STATUS EXAM: Oriented to herself. Insight, judgment, recent memory is impaired. Remote is better. Language function intact, attention span short. Mood and affect somewhat anxious, labile. No active psychotic symptoms, suicidal or homicidal ideation. LABORATORY DATA: Reviewed. IMPRESSION: Unchanged from initial note. PLAN: Continue psychotropics mentioned in my initial note. Adjust further as clinically indicated. Aricept was increased. PATRICK VELAZQUEZ MD DR: VIRGINIE/madeleine JOB#: [id number] / [id number]
--- NOTE | 2016-10-03 20:19 | PDOC ---
Exam Pradip Demential Exam: Pradip Note: Please also refer to the separate dictated note~for this date of service dictated separately.~Patient seen individually. Discussed the patient with Nursing staff reviewed the chart.~Reviewed interim history and current functioning. Reviewed vital signs,~Labs/ Radiology~and current medications noted below. Continue current treatment with the changes noted in the dictated addendum note Assessment: Vital Signs: Vital Signs Date Time Temp Pulse Resp B/P (MAP) Pulse Ox O2 Delivery O2 Flow Rate FiO2 10/03/16 17:25 97.7 71 20 117/83 (94) 100 10/02/16 05:35 Room Air I&O Intake and Output 10/03/16 07:00 Intake Total 960 ml Balance 960 ml Intake Oral 960 ml Labs: Laboratory Tests Test 10/03/16 07:19 Glucose (Fingerstick) 80 mg/dL (70-99) Current Medications: Meds: Current Medications Acetaminophen (Tylenol) 650 mg PRN Q6HRS PRN PO PAIN / TEMP; Start 10/01/16 at 17:00 Multi-Ingredient Ointment (Analgesic [place]) 1 allison PRN QID PRN TP MUSCLE PAIN; Start 10/01/16 at 17:00 Al Hydroxide/Mg Hydroxide (Mylanta Plus Xs) 15 ml PRN AFTMEALHC PRN PO DYSPEPSIA; Start 10/01/16 at 17:00 Magnesium Hydroxide (Milk Of Magnesia) 2,400 mg PRN QHS PRN PO CONSTIPATION; Start 10/01/16 at 17:00 Donepezil HCl (Aricept) 2.5 mg HS PO ; Start 10/01/16 at 21:00; Stop 10/01/16 at 21:00; Status DC Mirtazapine (Remeron) 15 mg HS PO Last administered on 10/03/16 20:13; Start 10/01/16 at 21:00 Quetiapine Fumarate (SEROquel) 12.5 mg DAILY PO Last administered on 10/03/16 07:49; Start 10/02/16 at 09:00 Sertraline HCl (Zoloft) 50 mg DAILY PO Last administered on 10/03/16 07:49; Start 10/02/16 at 09:00 Memantine (Namenda) 5 mg DAILY PO Last administered on 10/03/16 07:50; Start 10/02/16 at 09:00; Stop 10/05/16 at 08:59 Memantine (Namenda) 5 mg BID PO ; Start 10/05/16 at 21:00 Donepezil HCl (Aricept) 10 mg DAILY PO Last administered on 10/03/16 07:50; Start 10/02/16 at 09:00 Olanzapine (ZyPREXA ZYDIS) 2.5 mg PRN Q2HR PRN PO PSYCHOSIS; Start 10/01/16 at 18:45 Simvastatin (Zocor) 20 mg HS PO Last administered on 10/03/16 20:13; Start 02/06 at 21:00 Non-Formulary Medication 1 tab DAILY PO ; Start 10/02/16 at 09:00; Status UNV Pantoprazole Sodium (Protonix) 40 mg DAILYAC PO Last administered on 10/03/16 07:50; Start 10/02/16 at 07:30 Linagliptin (Tradjenta) 5 mg DAILY PO Last administered on 10/03/16 07:50; Start 10/02/16 at 09:00 Triamcinolone Acetonide (Kenalog) 1 allison PRN DAILY PRN TP small amt to ears; Start 10/02/16 at 09:00 Non-Formulary Medication 1 tab DAILY .ROUTE ; Start 10/02/16 at 09:00; Status UNV Lisinopril (Prinivil) 20 mg DAILY PO Last administered on 10/03/16 07:50; Start 10/02/16 at 09:00 Hydrochlorothiazide (Microzide) 12.5 mg DAILY PO Last administered on 07:50; Start 10/02/16 at 09:00 Active Scripts Active Reported Seroquel (Quetiapine Fumarate) 25 Mg Tablet 12.5 Mg PO DAILY [Hycomine compound] 1 Tab DAILY Kenalog (Triamcinolone Acetonide) 100 Gm Aerosol 1 Allison TP PRN DAILY PRN Januvia (Sitagliptin Phosphate) 100 Mg Tablet 100 Mg PO DAILY Zocor (Simvastatin) 20 Mg Tablet 20 Mg PO HS Zoloft (Sertraline Hcl) 50 Mg Tablet 50 Mg PO DAILY Quetiapine Fumarate 25 Mg Tablet 25 Mg PO HS Omeprazole 40 Mg Capsule.dr 40 Mg PO DAILY Mirtazapine 15 Mg Tablet 15 Mg PO HS Donepezil Hcl 5 Mg Tablet 2.5 Mg PO HS Benazepril-Hctz 20-12.5 Mg Tab (Benazepril/Hydrochlorothiazide) 1 Each Tablet 1 Tab PO DAILY Diagnosis: Problems: (1) Dementia with behavioral disturbance (2) Anxiety disorder (3) Dementia, vascular, with delusions (4) Dementia, vascular, with depression (5) Dementia in Alzheimer's disease with delusions (6) Dementia in Alzheimer's disease with depression (7) Impulse control disorder PATRICK VELAZQUEZ MD Oct 03, 2016 20:19
[2016-10-04 06:09] VITALS: BP 156/73
[2016-10-04] MEDS: PANTOPRAZOLE 40 MG TABLET. PO SCH (07:43)
[2016-10-04] MEDS: LISINOPRIL 20 MG TABLET PO SCH (08:50)
[2016-10-04] MEDS: hydroCHLOROthiazide 12.5 MG CAPSULE PO SCH (08:50)
[2016-10-04] MEDS: SERTRALINE 50 MG TABLET. PO SCH (08:50)
[2016-10-04] MEDS: DONEPEZIL HCL 10 MG TABLET PO SCH (08:51)
[2016-10-04] MEDS: QUEtiapine 25 MG TABLET. PO SCH (08:51)
[2016-10-04] MEDS: MEMANTINE 5 MG TABLET. PO SCH (08:51)
[2016-10-04] MEDS: LINAGLIPTIN 5 MG TABLET PO SCH (08:51)
[2016-10-04 16:48] VITALS: BP 173/72
--- NOTE | 2016-10-04 20:17 | PDOC ---
Exam Pradip Demential Exam: Pradip Note: Please also refer to the separate dictated note~for this date of service dictated separately.~Patient seen individually. Discussed the patient with Nursing staff reviewed the chart.~Reviewed interim history and current functioning. Reviewed vital signs,~Labs/ Radiology~and current medications noted below. Continue current treatment with the changes noted in the dictated addendum note Assessment: Vital Signs: Vital Signs Date Time Temp Pulse Resp B/P (MAP) Pulse Ox O2 Delivery O2 Flow Rate FiO2 10/04/16 16:48 98.7 72 18 173/72 (105) 99 10/02/16 05:35 Room Air I&O Intake and Output 10/04/16 07:00 Intake Total 1140 ml Balance 1140 ml Intake Oral 1140 ml Labs: Laboratory Tests Test 10/04/16 07:11 10/04/16 07:17 Glucose (Fingerstick) 95 mg/dL (70-99) 128 mg/dL (70-99) H Current Medications: Meds: Current Medications Acetaminophen (Tylenol) 650 mg PRN Q6HRS PRN PO PAIN / TEMP; Start 10/01/16 at 17:00 Multi-Ingredient Ointment (Analgesic [place]) 1 allison PRN QID PRN TP MUSCLE PAIN; Start 10/01/16 at 17:00 Al Hydroxide/Mg Hydroxide (Mylanta Plus Xs) 15 ml PRN AFTMEALHC PRN PO DYSPEPSIA; Start 10/01/16 at 17:00 Magnesium Hydroxide (Milk Of Magnesia) 2,400 mg PRN QHS PRN PO CONSTIPATION; Start 10/01/16 at 17:00 Donepezil HCl (Aricept) 2.5 mg HS PO ; Start 10/01/16 at 21:00; Stop 10/01/16 at 21:00; Status DC Mirtazapine (Remeron) 15 mg HS PO Last administered on 10/03/16 20:13; Start 10/01/16 at 21:00 Quetiapine Fumarate (SEROquel) 12.5 mg DAILY PO Last administered on 10/04/16 08:51; Start 10/02/16 at 09:00 Sertraline HCl (Zoloft) 50 mg DAILY PO Last administered on 10/04/16 08:50; Start 10/02/16 at 09:00 Memantine (Namenda) 5 mg DAILY PO Last administered on 10/04/16 08:51; Start 10/02/16 at 09:00; Stop 10/05/16 at 08:59 Memantine (Namenda) 5 mg BID PO ; Start 10/05/16 at 21:00 Donepezil HCl (Aricept) 10 mg DAILY PO Last administered on 10/04/16 08:51; Start 10/02/16 at 09:00 Olanzapine (ZyPREXA ZYDIS) 2.5 mg PRN Q2HR PRN PO PSYCHOSIS; Start 10/01/16 at 18:45 Simvastatin (Zocor) 20 mg HS PO Last administered on 10/03/16 20:13; Start 02/06 at 21:00 Non-Formulary Medication 1 tab DAILY PO ; Start 10/02/16 at 09:00; Status UNV Pantoprazole Sodium (Protonix) 40 mg DAILYAC PO Last administered on 10/04/16 07:43; Start 10/02/16 at 07:30 Linagliptin (Tradjenta) 5 mg DAILY PO Last administered on 10/04/16 08:51; Start 10/02/16 at 09:00 Triamcinolone Acetonide (Kenalog) 1 allison PRN DAILY PRN TP small amt to ears; Start 10/02/16 at 09:00 Non-Formulary Medication 1 tab DAILY .ROUTE ; Start 10/02/16 at 09:00; Status UNV Lisinopril (Prinivil) 20 mg DAILY PO Last administered on 10/04/16 08:50; Start 10/02/16 at 09:00 Hydrochlorothiazide (Microzide) 12.5 mg DAILY PO Last administered on 08:50; Start 10/02/16 at 09:00 Carbamide Peroxide (Debrox) 5 drop BID AU ; Start 10/04/16 at 21:00 Active Scripts Active Reported Seroquel (Quetiapine Fumarate) 25 Mg Tablet 12.5 Mg PO DAILY [Hycomine compound] 1 Tab DAILY Kenalog (Triamcinolone Acetonide) 100 Gm Aerosol 1 Allison TP PRN DAILY PRN Januvia (Sitagliptin Phosphate) 100 Mg Tablet 100 Mg PO DAILY Zocor (Simvastatin) 20 Mg Tablet 20 Mg PO HS Zoloft (Sertraline Hcl) 50 Mg Tablet 50 Mg PO DAILY Quetiapine Fumarate 25 Mg Tablet 25 Mg PO HS Omeprazole 40 Mg Capsule.dr 40 Mg PO DAILY Mirtazapine 15 Mg Tablet 15 Mg PO HS Donepezil Hcl 5 Mg Tablet 2.5 Mg PO HS Benazepril-Hctz 20-12.5 Mg Tab (Benazepril/Hydrochlorothiazide) 1 Each Tablet 1 Tab PO DAILY Diagnosis: Problems: (1) Dementia with behavioral disturbance (2) Anxiety disorder (3) Dementia, vascular, with delusions (4) Dementia, vascular, with depression (5) Dementia in Alzheimer's disease with delusions (6) Dementia in Alzheimer's disease with depression (7) Impulse control disorder PATRICK VELAZQUEZ MD Oct 04, 2016 20:17
[2016-10-04] MEDS: MIRTAZAPINE 15 MG TABLET PO SCH (20:40)
[2016-10-04] MEDS: SIMVASTATIN 20 MG TABLET PO SCH (20:40)
[2016-10-04] MEDS: CARBAMIDE PEROXIDE 6.5% OTIC SOLUTION 15ML BOTTLE. AU SCH (21:00)
[2016-10-05 05:27] VITALS: BP 170/98
--- NOTE | 2016-10-05 09:13 | PN ---
DATE: 10/03/2016 PSYCHIATRIC PROGRESS NOTE This is a late entry for 10/03/2016, covers elements not covered in my initial note of 10/03/2016. SUBJECTIVE: Met with the patient evening of 10/03/2016. She continues to have significant short term memory deficits, did not remember what she had for supper, once I questioned her evening of 10/03/2016 about an hour after she had had it. She even did not remember meet her previously, even though I have seen her everyday. She slept 5-1/2 hours, not aggressive, however. REVIEW OF SYSTEMS: No CV, , pulmonary, eye, ENT system symptoms on review. Reliability poor. MENTAL STATUS EXAM: Oriented to herself. Insight, judgment, recent and remote memory, attention, concentration, fund of knowledge poor, consistent with her diagnosis mentioned in my initial note. LABORATORY DATA: Reviewed. PLAN: Continue current psychotropics mentioned in my initial note. Adjust further as clinically indicated. MAN Rae VELAZQUEZ MD DR: VIRGINIE/madeleine JOB#: [id number] / [id number]
[2016-10-05] MEDS: LISINOPRIL 20 MG TABLET PO SCH (09:15)
[2016-10-05] MEDS: QUEtiapine 25 MG TABLET. PO SCH (09:15)
[2016-10-05] MEDS: PANTOPRAZOLE 40 MG TABLET. PO SCH (09:15)
[2016-10-05] MEDS: LINAGLIPTIN 5 MG TABLET PO SCH (09:16)
[2016-10-05] MEDS: hydroCHLOROthiazide 12.5 MG CAPSULE PO SCH (09:16)
[2016-10-05] MEDS: DONEPEZIL HCL 10 MG TABLET PO SCH (09:16)
[2016-10-05] MEDS: SERTRALINE 50 MG TABLET. PO SCH (09:16)
[2016-10-05] MEDS: CARBAMIDE PEROXIDE 6.5% OTIC SOLUTION 15ML BOTTLE. AU SCH ×2 (09:21→20:50)
[2016-10-05 16:23] VITALS: BP 132/78
--- NOTE | 2016-10-05 19:51 | PDOC ---
Exam Pradip Demential Exam: Pradip Note: Please also refer to the separate dictated note~for this date of service dictated separately.~Patient seen individually. Discussed the patient with Nursing staff reviewed the chart.~Reviewed interim history and current functioning. Reviewed vital signs,~Labs/ Radiology~and current medications noted below. Continue current treatment with the changes noted in the dictated addendum note Assessment: Vital Signs: Vital Signs Date Time Temp Pulse Resp B/P (MAP) Pulse Ox O2 Delivery O2 Flow Rate FiO2 10/05/16 16:23 97.2 90 20 132/78 (96) 98 10/05/16 05:27 Room Air I&O Intake and Output 10/05/16 07:00 Intake Total 780 ml Balance 780 ml Intake Oral 780 ml Labs: Laboratory Tests Test 10/05/16 07:57 Glucose (Fingerstick) 88 mg/dL (70-99) Current Medications: Meds: Current Medications Acetaminophen (Tylenol) 650 mg PRN Q6HRS PRN PO PAIN / TEMP; Start 10/01/16 at 17:00 Multi-Ingredient Ointment (Analgesic [place]) 1 allison PRN QID PRN TP MUSCLE PAIN; Start 10/01/16 at 17:00 Al Hydroxide/Mg Hydroxide (Mylanta Plus Xs) 15 ml PRN AFTMEALHC PRN PO DYSPEPSIA; Start 10/01/16 at 17:00 Magnesium Hydroxide (Milk Of Magnesia) 2,400 mg PRN QHS PRN PO CONSTIPATION; Start 10/01/16 at 17:00 Donepezil HCl (Aricept) 2.5 mg HS PO ; Start 10/01/16 at 21:00; Stop 10/01/16 at 21:00; Status DC Mirtazapine (Remeron) 15 mg HS PO Last administered on 10/04/16 20:40; Start 10/01/16 at 21:00 Quetiapine Fumarate (SEROquel) 12.5 mg DAILY PO Last administered on 10/05/16 09:15; Start 10/02/16 at 09:00 Sertraline HCl (Zoloft) 50 mg DAILY PO Last administered on 10/05/16 09:16; Start 10/02/16 at 09:00 Memantine (Namenda) 5 mg DAILY PO Last administered on 10/04/16 08:51; Start 10/02/16 at 09:00; Stop 10/05/16 at 08:59; Status DC Memantine (Namenda) 5 mg BID PO ; Start 10/05/16 at 21:00 Donepezil HCl (Aricept) 10 mg DAILY PO Last administered on 10/05/16 09:16; Start 10/02/16 at 09:00 Olanzapine (ZyPREXA ZYDIS) 2.5 mg PRN Q2HR PRN PO PSYCHOSIS; Start 10/01/16 at 18:45 Simvastatin (Zocor) 20 mg HS PO Last administered on 10/04/16 20:40; Start 02/06 at 21:00 Non-Formulary Medication 1 tab DAILY PO ; Start 10/02/16 at 09:00; Status UNV Pantoprazole Sodium (Protonix) 40 mg DAILYAC PO Last administered on 10/05/16 09:15; Start 10/02/16 at 07:30 Linagliptin (Tradjenta) 5 mg DAILY PO Last administered on 10/05/16 09:16; Start 10/02/16 at 09:00 Triamcinolone Acetonide (Kenalog) 1 allison PRN DAILY PRN TP small amt to ears; Start 10/02/16 at 09:00 Non-Formulary Medication 1 tab DAILY .ROUTE ; Start 10/02/16 at 09:00; Status UNV Lisinopril (Prinivil) 20 mg DAILY PO Last administered on 10/05/16 09:15; Start 10/02/16 at 09:00 Hydrochlorothiazide (Microzide) 12.5 mg DAILY PO Last administered on 09:16; Start 10/02/16 at 09:00 Carbamide Peroxide (Debrox) 5 drop BID AU Last administered on 10/05/16 09:21 ; Start 10/04/16 at 21:00 Active Scripts Active Reported Seroquel (Quetiapine Fumarate) 25 Mg Tablet 12.5 Mg PO DAILY [Hycomine compound] 1 Tab DAILY Kenalog (Triamcinolone Acetonide) 100 Gm Aerosol 1 Allison TP PRN DAILY PRN Januvia (Sitagliptin Phosphate) 100 Mg Tablet 100 Mg PO DAILY Zocor (Simvastatin) 20 Mg Tablet 20 Mg PO HS Zoloft (Sertraline Hcl) 50 Mg Tablet 50 Mg PO DAILY Quetiapine Fumarate 25 Mg Tablet 25 Mg PO HS Omeprazole 40 Mg Capsule.dr 40 Mg PO DAILY Mirtazapine 15 Mg Tablet 15 Mg PO HS Donepezil Hcl 5 Mg Tablet 2.5 Mg PO HS Benazepril-Hctz 20-12.5 Mg Tab (Benazepril/Hydrochlorothiazide) 1 Each Tablet 1 Tab PO DAILY Diagnosis: Problems: (1) Dementia with behavioral disturbance (2) Anxiety disorder (3) Dementia, vascular, with delusions (4) Dementia, vascular, with depression (5) Dementia in Alzheimer's disease with delusions (6) Dementia in Alzheimer's disease with depression (7) Impulse control disorder PATRICK VELAZQUEZ MD Oct 05, 2016 19:51
[2016-10-05] MEDS: MIRTAZAPINE 15 MG TABLET PO SCH (20:51)
[2016-10-05] MEDS: SIMVASTATIN 20 MG TABLET PO SCH (20:51)
[2016-10-05] MEDS: MEMANTINE 5 MG TABLET. PO SCH (20:54)
--- NOTE | 2016-10-06 04:11 | PN ---
DATE: 10/04/2016 This late entry for 10/04/2016 covers elements not covered in my initial note of 10/04/2016. SUBJECTIVE: I met with the patient in the evening of 10/04/2016. She has significant short-term memory deficits, did not remember seeing me previously, had forgotten what she had for supper by the time I visited with her shortly after supper. She takes her medications, attending groups. Mood is better. REVIEW OF SYSTEMS: No CV, , pulmonary, eye, ENT system symptoms on review. Reliability poor. MENTAL STATUS EXAM: Oriented to herself and situation. Insight, judgment, recent memory is impaired. Language function intact. Attention span short. Mood and affect showing some improvement. LABORATORY DATA: Reviewed. IMPRESSION: Unchanged from initial note. PLAN: Continue current psychotropics, reviewed drug interactions. Risk/benefit ratio favors no further changes noted from my initial note. PATRICK VELAZQUEZ MD DR: VIRGINIE/madeleine JOB#: [id number] / [id number]
[2016-10-06 06:23] VITALS: BP 105/73
[2016-10-06] MEDS: PANTOPRAZOLE 40 MG TABLET. PO SCH (07:44)
[2016-10-06] MEDS: LINAGLIPTIN 5 MG TABLET PO SCH (08:49)
[2016-10-06] MEDS: DONEPEZIL HCL 10 MG TABLET PO SCH (08:49)
[2016-10-06] MEDS: LISINOPRIL 20 MG TABLET PO SCH (08:49)
[2016-10-06] MEDS: MEMANTINE 5 MG TABLET. PO SCH ×2 (08:49→21:21)
[2016-10-06] MEDS: SERTRALINE 50 MG TABLET. PO SCH (08:49)
[2016-10-06] MEDS: hydroCHLOROthiazide 12.5 MG CAPSULE PO SCH (08:49)
[2016-10-06] MEDS: QUEtiapine 25 MG TABLET. PO SCH (08:50)
[2016-10-06] MEDS: CARBAMIDE PEROXIDE 6.5% OTIC SOLUTION 15ML BOTTLE. AU SCH ×2 (08:53→21:23)
[2016-10-06 16:28] VITALS: BP 163/79
--- NOTE | 2016-10-06 19:48 | PDOC ---
Exam Pradip Demential Exam: Pradip Note: Please also refer to the separate dictated note~for this date of service dictated separately.~Patient seen individually. Discussed the patient with Nursing staff reviewed the chart.~Reviewed interim history and current functioning. Reviewed vital signs,~Labs/ Radiology~and current medications noted below. Continue current treatment with the changes noted in the dictated addendum note Assessment: Vital Signs: Vital Signs Date Time Temp Pulse Resp B/P (MAP) Pulse Ox O2 Delivery O2 Flow Rate FiO2 10/06/16 16:28 97.4 73 20 163/79 (107) 98 10/05/16 05:27 Room Air I&O Intake and Output 10/06/16 07:00 Intake Total 1200 ml Balance 1200 ml Intake Oral 1200 ml # Bowel Movements 1 Labs: Laboratory Tests Test 10/06/16 07:34 Glucose (Fingerstick) 90 mg/dL (70-99) Current Medications: Meds: Current Medications Acetaminophen (Tylenol) 650 mg PRN Q6HRS PRN PO PAIN / TEMP; Start 10/01/16 at 17:00 Multi-Ingredient Ointment (Analgesic [place]) 1 allison PRN QID PRN TP MUSCLE PAIN; Start 10/01/16 at 17:00 Al Hydroxide/Mg Hydroxide (Mylanta Plus Xs) 15 ml PRN AFTMEALHC PRN PO DYSPEPSIA; Start 10/01/16 at 17:00 Magnesium Hydroxide (Milk Of Magnesia) 2,400 mg PRN QHS PRN PO CONSTIPATION; Start 10/01/16 at 17:00 Donepezil HCl (Aricept) 2.5 mg HS PO ; Start 10/01/16 at 21:00; Stop 10/01/16 at 21:00; Status DC Mirtazapine (Remeron) 15 mg HS PO Last administered on 10/05/16 20:51; Start 10/01/16 at 21:00 Quetiapine Fumarate (SEROquel) 12.5 mg DAILY PO Last administered on 10/06/16 08:50; Start 10/02/16 at 09:00 Sertraline HCl (Zoloft) 50 mg DAILY PO Last administered on 10/06/16 08:49; Start 10/02/16 at 09:00 Memantine (Namenda) 5 mg DAILY PO Last administered on 10/04/16 08:51; Start 10/02/16 at 09:00; Stop 10/05/16 at 08:59; Status DC Memantine (Namenda) 5 mg BID PO Last administered on 10/06/16 08:49; Start at 21:00; Stop 10/06/16 at 21:00 Donepezil HCl (Aricept) 10 mg DAILY PO Last administered on 10/06/16 08:49; Start 10/02/16 at 09:00 Olanzapine (ZyPREXA ZYDIS) 2.5 mg PRN Q2HR PRN PO PSYCHOSIS; Start 10/01/16 at 18:45 Simvastatin (Zocor) 20 mg HS PO Last administered on 10/05/16 20:51; Start 02/06 at 21:00 Non-Formulary Medication 1 tab DAILY PO ; Start 10/02/16 at 09:00; Status UNV Pantoprazole Sodium (Protonix) 40 mg DAILYAC PO Last administered on 10/06/16 07:44; Start 10/02/16 at 07:30 Linagliptin (Tradjenta) 5 mg DAILY PO Last administered on 10/06/16 08:49; Start 10/02/16 at 09:00 Triamcinolone Acetonide (Kenalog) 1 allison PRN DAILY PRN TP small amt to ears; Start 10/02/16 at 09:00 Non-Formulary Medication 1 tab DAILY .ROUTE ; Start 10/02/16 at 09:00; Status UNV Lisinopril (Prinivil) 20 mg DAILY PO Last administered on 10/06/16 08:49; Start 10/02/16 at 09:00 Hydrochlorothiazide (Microzide) 12.5 mg DAILY PO Last administered on 08:49; Start 10/02/16 at 09:00 Carbamide Peroxide (Debrox) 5 drop BID AU Last administered on 10/06/16 08:53 ; Start 10/04/16 at 21:00 Memantine (Namenda) 5 mg DAILY PO ; Start 10/07/16 at 09:00; Stop 10/10/16 at 08 :59 Memantine (Namenda) 10 mg DAILY PO ; Start 10/10/16 at 09:00 Active Scripts Active Reported Seroquel (Quetiapine Fumarate) 25 Mg Tablet 12.5 Mg PO DAILY [Hycomine compound] 1 Tab DAILY Kenalog (Triamcinolone Acetonide) 100 Gm Aerosol 1 Allison TP PRN DAILY PRN Januvia (Sitagliptin Phosphate) 100 Mg Tablet 100 Mg PO DAILY Zocor (Simvastatin) 20 Mg Tablet 20 Mg PO HS Zoloft (Sertraline Hcl) 50 Mg Tablet 50 Mg PO DAILY Quetiapine Fumarate 25 Mg Tablet 25 Mg PO HS Omeprazole 40 Mg Capsule.dr 40 Mg PO DAILY Mirtazapine 15 Mg Tablet 15 Mg PO HS Donepezil Hcl 5 Mg Tablet 2.5 Mg PO HS Benazepril-Hctz 20-12.5 Mg Tab (Benazepril/Hydrochlorothiazide) 1 Each Tablet 1 Tab PO DAILY Diagnosis: Problems: (1) Dementia with behavioral disturbance (2) Anxiety disorder (3) Dementia, vascular, with delusions (4) Dementia, vascular, with depression (5) Dementia in Alzheimer's disease with delusions (6) Dementia in Alzheimer's disease with depression (7) Impulse control disorder PATRICK VELAZQUEZ MD Oct 06, 2016 19:48
[2016-10-06] MEDS: SIMVASTATIN 20 MG TABLET PO SCH (21:21)
[2016-10-06] MEDS: MIRTAZAPINE 15 MG TABLET PO SCH (21:21)
[2016-10-07] MEDS ORDERED: CHOL500050 PO (01:19)
[2016-10-07 05:50] VITALS: BP 145/72
--- NOTE | 2016-10-07 07:06 | PN ---
DATE: 10/05/2016 PSYCHIATRIC PROGRESS NOTE This late entry 10/05/2016, covers elements not covered in my initial note of 10/05/2016. SUBJECTIVE: I met with the patient in the evening of 10/05/2016. The patient remains confused, forgetful, but otherwise pleasant, cooperative. Her daughter visited. REVIEW OF SYSTEMS: No CV, , pulmonary, eye, ENT system symptoms on review. Reliability poor. MENTAL STATUS EXAM: Oriented to herself. Insight, judgment, recent and remote memory, attention, concentration, fund of knowledge poor, consistent with her diagnosis. Again, she did not remember me even though I visit with her every day. LABORATORY DATA: Reviewed. IMPRESSION: Unchanged from initial note. PLAN: Continue current psychotropics. Adjust further as clinically indicated. MAN Rae VELAZQUEZ MD DR: VIRGINIE/madeleine JOB#: [id number] / [id number]
[2016-10-07] MEDS: LISINOPRIL 20 MG TABLET PO SCH (08:00)
[2016-10-07] MEDS: hydroCHLOROthiazide 12.5 MG CAPSULE PO SCH (08:00)
[2016-10-07] MEDS: PANTOPRAZOLE 40 MG TABLET. PO SCH (08:00)
[2016-10-07] MEDS: DONEPEZIL HCL 10 MG TABLET PO SCH (08:00)
[2016-10-07] MEDS: SERTRALINE 50 MG TABLET. PO SCH (08:00)
[2016-10-07] MEDS: LINAGLIPTIN 5 MG TABLET PO SCH (08:00)
[2016-10-07] MEDS: QUEtiapine 25 MG TABLET. PO SCH (08:01)
[2016-10-07] MEDS: MEMANTINE 5 MG TABLET. PO SCH (08:02)
[2016-10-07] MEDS: CARBAMIDE PEROXIDE 6.5% OTIC SOLUTION 15ML BOTTLE. AU SCH ×2 (08:02→20:38)
[2016-10-07] MEDS: CHOLECALCIFEROL (VITAMIN D3) 50,000 UNIT CAPSULE PO SCH (15:32)
[2016-10-07 16:05] VITALS: BP 118/77
--- NOTE | 2016-10-07 19:48 | PDOC ---
Exam Pradip Demential Exam: Pradip Note: Please also refer to the separate dictated note~for this date of service dictated separately.~Patient seen individually. Discussed the patient with Nursing staff reviewed the chart.~Reviewed interim history and current functioning. Reviewed vital signs,~Labs/ Radiology~and current medications noted below. Continue current treatment with the changes noted in the dictated addendum note Assessment: Vital Signs: Vital Signs Date Time Temp Pulse Resp B/P (MAP) Pulse Ox O2 Delivery O2 Flow Rate FiO2 10/07/16 16:05 96.8 88 18 118/77 (91) 97 10/05/16 05:27 Room Air I&O Intake and Output 10/07/16 07:00 Intake Total 1320 ml Balance 1320 ml Intake Oral 1320 ml # Voids 2 Labs: Laboratory Tests Test 10/07/16 07:25 Glucose (Fingerstick) 101 mg/dL (70-99) H Current Medications: Meds: Current Medications Acetaminophen (Tylenol) 650 mg PRN Q6HRS PRN PO PAIN / TEMP; Start 10/01/16 at 17:00 Multi-Ingredient Ointment (Analgesic [place]) 1 allison PRN QID PRN TP MUSCLE PAIN; Start 10/01/16 at 17:00 Al Hydroxide/Mg Hydroxide (Mylanta Plus Xs) 15 ml PRN AFTMEALHC PRN PO DYSPEPSIA; Start 10/01/16 at 17:00 Magnesium Hydroxide (Milk Of Magnesia) 2,400 mg PRN QHS PRN PO CONSTIPATION; Start 10/01/16 at 17:00 Donepezil HCl (Aricept) 2.5 mg HS PO ; Start 10/01/16 at 21:00; Stop 10/01/16 at 21:00; Status DC Mirtazapine (Remeron) 15 mg HS PO Last administered on 10/06/16 21:21; Start 10/01/16 at 21:00 Quetiapine Fumarate (SEROquel) 12.5 mg DAILY PO Last administered on 10/07/16 08:01; Start 10/02/16 at 09:00 Sertraline HCl (Zoloft) 50 mg DAILY PO Last administered on 10/07/16 08:00; Start 10/02/16 at 09:00 Memantine (Namenda) 5 mg DAILY PO Last administered on 10/04/16 08:51; Start 10/02/16 at 09:00; Stop 10/05/16 at 08:59; Status DC Memantine (Namenda) 5 mg BID PO Last administered on 10/06/16 21:21; Start at 21:00; Stop 10/06/16 at 21:00; Status DC Donepezil HCl (Aricept) 10 mg DAILY PO Last administered on 10/07/16 08:00; Start 10/02/16 at 09:00 Olanzapine (ZyPREXA ZYDIS) 2.5 mg PRN Q2HR PRN PO PSYCHOSIS Last administered on 10/07/16 15:31; Start 10/01/16 at 18:45 Simvastatin (Zocor) 20 mg HS PO Last administered on 10/06/16 21:21; Start 02/06 at 21:00 Non-Formulary Medication 1 tab DAILY PO ; Start 10/02/16 at 09:00; Status UNV Pantoprazole Sodium (Protonix) 40 mg DAILYAC PO Last administered on 10/07/16 08:00; Start 10/02/16 at 07:30 Linagliptin (Tradjenta) 5 mg DAILY PO Last administered on 10/07/16 08:00; Start 10/02/16 at 09:00 Triamcinolone Acetonide (Kenalog) 1 allison PRN DAILY PRN TP small amt to ears; Start 10/02/16 at 09:00 Non-Formulary Medication 1 tab DAILY .ROUTE ; Start 10/02/16 at 09:00; Status UNV Lisinopril (Prinivil) 20 mg DAILY PO Last administered on 10/07/16 08:00; Start 10/02/16 at 09:00 Hydrochlorothiazide (Microzide) 12.5 mg DAILY PO Last administered on 08:00; Start 10/02/16 at 09:00 Carbamide Peroxide (Debrox) 5 drop BID AU Last administered on 10/07/16 08:02 ; Start 10/04/16 at 21:00 Memantine (Namenda) 5 mg DAILY PO Last administered on 10/07/16 08:02; Start 10/07/16 at 09:00; Stop 8/20/17 at 08:59 Memantine (Namenda) 10 mg DAILY PO ; Start 10/10/16 at 09:00 Vitamin D (Vitamin D3) 50,000 unit WEEKLY PO Last administered on 10/07/16t 15: 32; Start 10/07/16 at 17:00 Active Scripts Active Reported Seroquel (Quetiapine Fumarate) 25 Mg Tablet 12.5 Mg PO DAILY [Hycomine compound] 1 Tab DAILY Kenalog (Triamcinolone Acetonide) 100 Gm Aerosol 1 Allison TP PRN DAILY PRN Januvia (Sitagliptin Phosphate) 100 Mg Tablet 100 Mg PO DAILY Zocor (Simvastatin) 20 Mg Tablet 20 Mg PO HS Zoloft (Sertraline Hcl) 50 Mg Tablet 50 Mg PO DAILY Quetiapine Fumarate 25 Mg Tablet 25 Mg PO HS Omeprazole 40 Mg Capsule.dr 40 Mg PO DAILY Mirtazapine 15 Mg Tablet 15 Mg PO HS Donepezil Hcl 5 Mg Tablet 2.5 Mg PO HS Benazepril-Hctz 20-12.5 Mg Tab (Benazepril/Hydrochlorothiazide) 1 Each Tablet 1 Tab PO DAILY Diagnosis: Problems: (1) Dementia with behavioral disturbance (2) Anxiety disorder (3) Dementia, vascular, with delusions (4) Dementia, vascular, with depression (5) Dementia in Alzheimer's disease with delusions (6) Dementia in Alzheimer's disease with depression (7) Impulse control disorder PATRICK VELAZQUEZ MD Oct 07, 2016 19:48
[2016-10-07] MEDS: MIRTAZAPINE 15 MG TABLET PO SCH (20:38)
[2016-10-07] MEDS: SIMVASTATIN 20 MG TABLET PO SCH (20:38)
--- NOTE | 2016-10-07 23:31 | PN ---
DATE: 10/06/2016 This late entry 10/06/2016 covers elements not covered in my initial note. I met with the patient evening of 10/06/2016. The patient's daughter visited her and remarked her sometimes. The patient is incontinent of bowel or bladder, but has not shared this with anyone else. She slept 7 and quarter hours the previous evening. Remains confused, forgetful, significant short term memory deficits. REVIEW OF SYSTEMS: No CV, , pulmonary, eye, ENT system symptoms on review. Reliability poor. MENTAL STATUS EXAM: Oriented to herself. Insight, judgment, recent and remote memory, attention, concentration, fund of knowledge poor, consistent with her diagnosis. She is pleasant, smiling, oblivious of her surroundings as I met with her individually. LABORATORY DATA: Reviewed. IMPRESSION: Unchanged from initial note. PLAN: Namenda is currently at 5 mg twice a day and once she has been on this for 3 days, we will increase it to 5 mg in the morning, 10 mg in the evening, and 3 days later to 10 mg twice a day. Maintain rest unchanged from initial note. Review drug interactions. Risk/benefit ratio favors no further change as of now. PATRICK VELAZQUEZ MD DR: VIRGINIE/madeleine JOB#: [id number] / [id number]
[2016-10-08 06:03] VITALS: BP 127/86
[2016-10-08] MEDS: SERTRALINE 50 MG TABLET. PO SCH (07:35)
[2016-10-08] MEDS: MEMANTINE 5 MG TABLET. PO SCH (07:35)
[2016-10-08] MEDS: DONEPEZIL HCL 10 MG TABLET PO SCH (07:35)
[2016-10-08] MEDS: LISINOPRIL 20 MG TABLET PO SCH (07:35)
[2016-10-08] MEDS: LINAGLIPTIN 5 MG TABLET PO SCH (07:35)
[2016-10-08] MEDS: PANTOPRAZOLE 40 MG TABLET. PO SCH (07:35)
[2016-10-08] MEDS: hydroCHLOROthiazide 12.5 MG CAPSULE PO SCH (07:36)
[2016-10-08] MEDS: QUEtiapine 25 MG TABLET. PO SCH (07:36)
[2016-10-08] MEDS: CARBAMIDE PEROXIDE 6.5% OTIC SOLUTION 15ML BOTTLE. AU SCH ×2 (07:37→19:41)
[2016-10-08 16:33] VITALS: BP 122/71
[2016-10-08] MEDS: SIMVASTATIN 20 MG TABLET PO SCH (19:41)
[2016-10-08] MEDS: MIRTAZAPINE 15 MG TABLET PO SCH (19:41)
--- NOTE | 2016-10-08 19:53 | PDOC ---
Exam Pradip Demential Exam: Pradip Note: Please also refer to the separate dictated note~for this date of service dictated separately.~Patient seen individually. Discussed the patient with Nursing staff reviewed the chart.~Reviewed interim history and current functioning. Reviewed vital signs,~Labs/ Radiology~and current medications noted below. Continue current treatment with the changes noted in the dictated addendum note Assessment: Vital Signs: Vital Signs Date Time Temp Pulse Resp B/P (MAP) Pulse Ox O2 Delivery O2 Flow Rate FiO2 10/08/16 16:33 98.5 78 18 122/71 (88) 98 10/05/16 05:27 Room Air I&O Intake and Output 10/08/16 07:00 Intake Total 1800 ml Balance 1800 ml Intake Oral 1800 ml # Voids 1 Labs: Laboratory Tests Test 10/08/16 07:43 Glucose (Fingerstick) 84 mg/dL (70-99) Current Medications: Meds: Current Medications Acetaminophen (Tylenol) 650 mg PRN Q6HRS PRN PO PAIN / TEMP; Start 10/01/16 at 17:00 Multi-Ingredient Ointment (Analgesic [place]) 1 allison PRN QID PRN TP MUSCLE PAIN; Start 10/01/16 at 17:00 Al Hydroxide/Mg Hydroxide (Mylanta Plus Xs) 15 ml PRN AFTMEALHC PRN PO DYSPEPSIA; Start 10/01/16 at 17:00 Magnesium Hydroxide (Milk Of Magnesia) 2,400 mg PRN QHS PRN PO CONSTIPATION; Start 10/01/16 at 17:00 Donepezil HCl (Aricept) 2.5 mg HS PO ; Start 10/01/16 at 21:00; Stop 10/01/16 at 21:00; Status DC Mirtazapine (Remeron) 15 mg HS PO Last administered on 10/08/16 19:41; Start 10/01/16 at 21:00 Quetiapine Fumarate (SEROquel) 12.5 mg DAILY PO Last administered on 10/08/16 07:36; Start 10/02/16 at 09:00 Sertraline HCl (Zoloft) 50 mg DAILY PO Last administered on 10/08/16 07:35; Start 10/02/16 at 09:00 Memantine (Namenda) 5 mg DAILY PO Last administered on 10/04/16 08:51; Start 10/02/16 at 09:00; Stop 10/05/16 at 08:59; Status DC Memantine (Namenda) 5 mg BID PO Last administered on 10/06/16 21:21; Start at 21:00; Stop 10/06/16 at 21:00; Status DC Donepezil HCl (Aricept) 10 mg DAILY PO Last administered on 10/08/16 07:35; Start 10/02/16 at 09:00 Olanzapine (ZyPREXA ZYDIS) 2.5 mg PRN Q2HR PRN PO PSYCHOSIS Last administered on 10/07/16 15:31; Start 10/01/16 at 18:45 Simvastatin (Zocor) 20 mg HS PO Last administered on 10/08/16 19:41; Start 02/06 at 21:00 Non-Formulary Medication 1 tab DAILY PO ; Start 10/02/16 at 09:00; Status UNV Pantoprazole Sodium (Protonix) 40 mg DAILYAC PO Last administered on 10/08/16 07:35; Start 10/02/16 at 07:30 Linagliptin (Tradjenta) 5 mg DAILY PO Last administered on 10/08/16 07:35; Start 10/02/16 at 09:00 Triamcinolone Acetonide (Kenalog) 1 allison PRN DAILY PRN TP small amt to ears; Start 10/02/16 at 09:00 Non-Formulary Medication 1 tab DAILY .ROUTE ; Start 10/02/16 at 09:00; Status UNV Lisinopril (Prinivil) 20 mg DAILY PO Last administered on 10/08/16 07:35; Start 10/02/16 at 09:00 Hydrochlorothiazide (Microzide) 12.5 mg DAILY PO Last administered on 07:36; Start 10/02/16 at 09:00 Carbamide Peroxide (Debrox) 5 drop BID AU Last administered on 10/08/16 19:41 ; Start 10/04/16 at 21:00 Memantine (Namenda) 5 mg DAILY PO Last administered on 10/08/16 07:35; Start 10/07/16 at 09:00; Stop 10/10/16 at 08:59 Memantine (Namenda) 10 mg DAILY PO ; Start 10/10/16 at 09:00 Vitamin D (Vitamin D3) 50,000 unit WEEKLY PO Last administered on 10/07/16t 15: 32; Start 10/07/16 at 17:00 Active Scripts Active Reported Seroquel (Quetiapine Fumarate) 25 Mg Tablet 12.5 Mg PO DAILY [Hycomine compound] 1 Tab DAILY Kenalog (Triamcinolone Acetonide) 100 Gm Aerosol 1 Allison TP PRN DAILY PRN Januvia (Sitagliptin Phosphate) 100 Mg Tablet 100 Mg PO DAILY Zocor (Simvastatin) 20 Mg Tablet 20 Mg PO HS Zoloft (Sertraline Hcl) 50 Mg Tablet 50 Mg PO DAILY Quetiapine Fumarate 25 Mg Tablet 25 Mg PO HS Omeprazole 40 Mg Capsule.dr 40 Mg PO DAILY Mirtazapine 15 Mg Tablet 15 Mg PO HS Donepezil Hcl 5 Mg Tablet 2.5 Mg PO HS Benazepril-Hctz 20-12.5 Mg Tab (Benazepril/Hydrochlorothiazide) 1 Each Tablet 1 Tab PO DAILY Diagnosis: Problems: (1) Dementia with behavioral disturbance (2) Anxiety disorder (3) Dementia, vascular, with delusions (4) Dementia, vascular, with depression (5) Dementia in Alzheimer's disease with delusions (6) Dementia in Alzheimer's disease with depression (7) Impulse control disorder PATRICK VELAZQUEZ MD Oct 08, 2016 19:53
--- NOTE | 2016-10-09 02:07 | PN ---
DATE: This is a late entry for 10/07/2016 and covers elements not covered in my initial note of 10/07/2016. SUBJECTIVE: The patient was staffed with treatment team meeting with the entire team morning of 10/07/2016, seen individually evening of 10/07/2016. At the treatment team meeting, reviewed the patient's history, family's perception, the patient will need a higher level of care than living alone by herself. Reviewed her past work history. She remains confused, forgetful. CT head shows atrophy, small vessel ischemic changes. REVIEW OF SYSTEMS: No CV, , pulmonary, eye, ENT system symptoms on review. MENTAL STATUS EXAM: Oriented to herself, pleasant, cooperative, but quite forgetful, did not remember me even though I have seen her every day, did not remember what she had for supper as I met with her the evening of 10/07/2016. Insight, judgment, recent memory is impaired. Language function intact. Attention span short. Mood and affect is improved. IMPRESSION: Unchanged from initial note. PLAN: Continue current psychotropics. Reviewed drug interactions, risk and benefit ratio and adjust further as clinically indicated. MAN Rae VELAZQUEZ MD DR: VIRGINIE/madeleine JOB#: [id number] / [id number]
[2016-10-09 06:05] VITALS: BP 171/76
[2016-10-09] MEDS: MEMANTINE 5 MG TABLET. PO SCH (07:31)
[2016-10-09] MEDS: hydroCHLOROthiazide 12.5 MG CAPSULE PO SCH (07:31)
[2016-10-09] MEDS: LISINOPRIL 20 MG TABLET PO SCH (07:31)
[2016-10-09] MEDS: LINAGLIPTIN 5 MG TABLET PO SCH (07:31)
[2016-10-09] MEDS: DONEPEZIL HCL 10 MG TABLET PO SCH (07:32)
[2016-10-09] MEDS: QUEtiapine 25 MG TABLET. PO SCH (07:32)
[2016-10-09] MEDS: PANTOPRAZOLE 40 MG TABLET. PO SCH (07:32)
[2016-10-09] MEDS: CARBAMIDE PEROXIDE 6.5% OTIC SOLUTION 15ML BOTTLE. AU SCH ×2 (07:32→20:21)
[2016-10-09] MEDS: SERTRALINE 50 MG TABLET. PO SCH (07:32)
[2016-10-09 15:47] VITALS: BP 160/92
--- NOTE | 2016-10-09 19:52 | PN ---
DATE: 10/08/2016 This late entry, 10/08/2016, covers elements not covered in my initial note of 10/08/2016. SUBJECTIVE: I met with the patient in the evening of 10/08/2016. The patient remains confused, but otherwise wandering, calm, and cooperative. She again did not remember me when I met with her the evening of 10/08/2016 even though I had seen her every day. She did not remember what she had for supper sometime after she had finished supper, but has very pleasant demeanor about her, less frustrated when she recognizes her memory deficits. This is an improvement from when she was admitted. I returned a telephone call from the patient's daughter, Eugenia Olmos, area code [phone]. Daughter had many questions about the patient's diagnosis at this stage of her dementia. Recommendations for placement post-discharge. Daughter is planning to give up her job and move closer to her mother and be available to her mother 24 hours a day and she wondered if this would be appropriate or assisted living. We will just have to see how she does with adjustments of her psychotropics. I explained to the daughter that memory is going to progressively worsen but the agitation, mood lability, misperceptions of her surrounding should improve with psychotropics. Daughter will continue to have conversations about this with the social service staff. REVIEW OF SYSTEMS: No CV, , pulmonary, eye, ENT system symptoms on review. Reliability poor. MENTAL STATUS EXAMINATION: Oriented to herself. Insight, judgment, recent and remote memory, attention, concentration, fund of knowledge poor consistent with her diagnosis mentioned in my initial note. LABORATORY DATA: Reviewed. PLAN: Continue psychotropics mentioned in my initial note. May increase Zoloft in due course. Namenda is being adjusted gradually. Continue Aricept, Remeron, and Seroquel for now. PATRICK VELAZQUEZ MD DR: VIRGINIE/madeleine JOB#: [id number] / [id number]
[2016-10-09] MEDS: MIRTAZAPINE 15 MG TABLET PO SCH (20:21)
[2016-10-09] MEDS: SIMVASTATIN 20 MG TABLET PO SCH (20:21)
--- NOTE | 2016-10-09 23:18 | PDOC ---
Exam Pradip Demential Exam: Pradip Note: Please also refer to the separate dictated note~for this date of service dictated separately.~Patient seen individually. Discussed the patient with Nursing staff reviewed the chart.~Reviewed interim history and current functioning. Reviewed vital signs,~Labs/ Radiology~and current medications noted below. Continue current treatment with the changes noted in the dictated addendum note Assessment: Vital Signs: Vital Signs Date Time Temp Pulse Resp B/P (MAP) Pulse Ox O2 Delivery O2 Flow Rate FiO2 10/09/16 15:47 97.3 87 18 160/92 (114) 98 10/09/16 06:05 Room Air I&O Intake and Output 10/09/16 07:00 Intake Total 1380 ml Balance 1380 ml Intake Oral 1380 ml Labs: Laboratory Tests Test 10/09/16 07:20 Glucose (Fingerstick) 81 mg/dL (70-99) Current Medications: Meds: Current Medications Acetaminophen (Tylenol) 650 mg PRN Q6HRS PRN PO PAIN / TEMP; Start 10/01/16 at 17:00 Multi-Ingredient Ointment (Analgesic [place]) 1 allison PRN QID PRN TP MUSCLE PAIN; Start 10/01/16 at 17:00 Al Hydroxide/Mg Hydroxide (Mylanta Plus Xs) 15 ml PRN AFTMEALHC PRN PO DYSPEPSIA; Start 10/01/16 at 17:00 Magnesium Hydroxide (Milk Of Magnesia) 2,400 mg PRN QHS PRN PO CONSTIPATION; Start 10/01/16 at 17:00 Donepezil HCl (Aricept) 2.5 mg HS PO ; Start 10/01/16 at 21:00; Stop 10/01/16 at 21:00; Status DC Mirtazapine (Remeron) 15 mg HS PO Last administered on 10/09/16 20:21; Start 10/01/16 at 21:00 Quetiapine Fumarate (SEROquel) 12.5 mg DAILY PO Last administered on 10/09/16 07:32; Start 10/02/16 at 09:00 Sertraline HCl (Zoloft) 50 mg DAILY PO Last administered on 10/09/16 07:32; Start 10/02/16 at 09:00 Memantine (Namenda) 5 mg DAILY PO Last administered on 10/04/16 08:51; Start 10/02/16 at 09:00; Stop 10/05/16 at 08:59; Status DC Memantine (Namenda) 5 mg BID PO Last administered on 10/06/16 21:21; Start at 21:00; Stop 10/06/16 at 21:00; Status DC Donepezil HCl (Aricept) 10 mg DAILY PO Last administered on 10/09/16 07:32; Start 10/02/16 at 09:00 Olanzapine (ZyPREXA ZYDIS) 2.5 mg PRN Q2HR PRN PO PSYCHOSIS Last administered on 10/09/16 14:20; Start 10/01/16 at 18:45 Simvastatin (Zocor) 20 mg HS PO Last administered on 10/09/16 20:21; Start 02/06 at 21:00 Non-Formulary Medication 1 tab DAILY PO ; Start 10/02/16 at 09:00; Status UNV Pantoprazole Sodium (Protonix) 40 mg DAILYAC PO Last administered on 10/09/16 07:32; Start 10/02/16 at 07:30 Linagliptin (Tradjenta) 5 mg DAILY PO Last administered on 10/09/16 07:31; Start 10/02/16 at 09:00 Triamcinolone Acetonide (Kenalog) 1 allison PRN DAILY PRN TP small amt to ears; Start 10/02/16 at 09:00 Non-Formulary Medication 1 tab DAILY .ROUTE ; Start 10/02/16 at 09:00; Status UNV Lisinopril (Prinivil) 20 mg DAILY PO Last administered on 10/09/16 07:31; Start 10/02/16 at 09:00 Hydrochlorothiazide (Microzide) 12.5 mg DAILY PO Last administered on 07:31; Start 10/02/16 at 09:00 Carbamide Peroxide (Debrox) 5 drop BID AU Last administered on 10/09/16 20:21 ; Start 10/04/16 at 21:00 Memantine (Namenda) 5 mg DAILY PO Last administered on 10/09/16 07:31; Start 10/07/16 at 09:00; Stop 10/10/16 at 08:59 Memantine (Namenda) 10 mg DAILY PO ; Start 10/10/16 at 09:00 Vitamin D (Vitamin D3) 50,000 unit WEEKLY PO Last administered on 10/07/16t 15: 32; Start 10/07/16 at 17:00 Active Scripts Active Reported Seroquel (Quetiapine Fumarate) 25 Mg Tablet 12.5 Mg PO DAILY [Hycomine compound] 1 Tab DAILY Kenalog (Triamcinolone Acetonide) 100 Gm Aerosol 1 Allison TP PRN DAILY PRN Januvia (Sitagliptin Phosphate) 100 Mg Tablet 100 Mg PO DAILY Zocor (Simvastatin) 20 Mg Tablet 20 Mg PO HS Zoloft (Sertraline Hcl) 50 Mg Tablet 50 Mg PO DAILY Quetiapine Fumarate 25 Mg Tablet 25 Mg PO HS Omeprazole 40 Mg Capsule.dr 40 Mg PO DAILY Mirtazapine 15 Mg Tablet 15 Mg PO HS Donepezil Hcl 5 Mg Tablet 2.5 Mg PO HS Benazepril-Hctz 20-12.5 Mg Tab (Benazepril/Hydrochlorothiazide) 1 Each Tablet 1 Tab PO DAILY Diagnosis: Problems: (1) Dementia with behavioral disturbance (2) Anxiety disorder (3) Dementia, vascular, with delusions (4) Dementia, vascular, with depression (5) Dementia in Alzheimer's disease with delusions (6) Dementia in Alzheimer's disease with depression (7) Impulse control disorder PATRICK VELAZQUEZ MD Oct 09, 2016 23:18
[2016-10-10 05:39] VITALS: BP 145/73
[2016-10-10] MEDS: hydroCHLOROthiazide 12.5 MG CAPSULE PO SCH (07:27)
[2016-10-10] MEDS: CARBAMIDE PEROXIDE 6.5% OTIC SOLUTION 15ML BOTTLE. AU SCH ×2 (07:27→21:07)
[2016-10-10] MEDS: DONEPEZIL HCL 10 MG TABLET PO SCH (07:28)
[2016-10-10] MEDS: QUEtiapine 25 MG TABLET. PO SCH (07:28)
[2016-10-10] MEDS: PANTOPRAZOLE 40 MG TABLET. PO SCH (07:28)
[2016-10-10] MEDS: LINAGLIPTIN 5 MG TABLET PO SCH (07:28)
[2016-10-10] MEDS: LISINOPRIL 20 MG TABLET PO SCH (07:28)
[2016-10-10] MEDS: SERTRALINE 50 MG TABLET. PO SCH (07:28)
[2016-10-10] MEDS: MEMANTINE 10 MG TABLET. PO SCH (07:31)
[2016-10-10 08:10] LABS: HEMATOCRIT 37.3 % (36.0-47.0); HEMOGLOBIN 12.5 g/dL (12.0-15.5); RED BLOOD COUNT 4.5 x10^6/uL (3.50-5.40); RED CELL DISTRIBUTION WIDTH 14.1 % (11.5-14.5); WHITE BLOOD COUNT 7.3 x10^3/uL (4.0-11.0)
[2016-10-10 08:26] LABS: ALBUMIN 3.4 g/dL (3.4-5.0); ALBUMIN/GLOBULIN RATIO 0.8 (1.0-1.7); CALCIUM 8.9 mg/dL (8.5-10.1); GFR 65.9; MAGNESIUM 2.1 mg/dL (1.8-2.4); TOTAL BILIRUBIN 0.3 mg/dL (0.2-1.0); TOTAL PROTEIN 7.6 g/dL (6.4-8.2)
[2016-10-10 16:14] VITALS: BP 148/68
--- NOTE | 2016-10-10 19:48 | PDOC ---
Exam Pradip Demential Exam: Pradip Note: Please also refer to the separate dictated note~for this date of service dictated separately.~Patient seen individually. Discussed the patient with Nursing staff reviewed the chart.~Reviewed interim history and current functioning. Reviewed vital signs,~Labs/ Radiology~and current medications noted below. Continue current treatment with the changes noted in the dictated addendum note Assessment: Vital Signs: Vital Signs Date Time Temp Pulse Resp B/P (MAP) Pulse Ox O2 Delivery O2 Flow Rate FiO2 10/10/16 16:14 97.4 76 18 148/68 (94) 97 10/10/16 05:39 Room Air I&O Intake and Output 10/10/16 07:00 Intake Total 840 ml Balance 840 ml Intake Oral 840 ml Labs: Laboratory Tests Test 10/10/16 07:17 10/10/16 07:31 Glucose (Fingerstick) 86 mg/dL (70-99) White Blood Count 7.3 x10^3/uL (4.0-11.0) Red Blood Count 4.50 x10^6/uL (3.50-5.40) Hemoglobin 12.5 g/dL (12.0-15.5) Hematocrit 37.3 % (36.0-47.0) Mean Corpuscular Volume 83 fL (79-100) Mean Corpuscular Hemoglobin 28 pg (25-35) Mean Corpuscular Hemoglobin Concent 34 g/dL (31-37) Red Cell Distribution Width 14.1 % (11.5-14.5) Platelet Count 210 x10^3/uL (140-400) Sodium Level 142 mmol/L (136-145) Potassium Level 4.0 mmol/L (3.5-5.1) Chloride Level 105 mmol/L (98-107) Carbon Dioxide Level 32 mmol/L (21-32) Anion Gap 5 (6-14) L Blood Urea Nitrogen 15 mg/dL (7-20) Creatinine 1.0 mg/dL (0.6-1.0) Estimated GFR (Cockcroft-Gault) 65.9 BUN/Creatinine Ratio 15 (6-20) Glucose Level 84 mg/dL (70-99) Calcium Level 8.9 mg/dL (8.5-10.1) Magnesium Level 2.1 mg/dL (1.8-2.4) Total Bilirubin 0.3 mg/dL (0.2-1.0) Aspartate Amino Transferase (AST) 21 U/L (15-37) Alanine Aminotransferase (ALT) 26 U/L (14-59) Alkaline Phosphatase 112 U/L (46-116) Total Protein 7.6 g/dL (6.4-8.2) Albumin 3.4 g/dL (3.4-5.0) Albumin/Globulin Ratio 0.8 (1.0-1.7) L Current Medications: Meds: Current Medications Acetaminophen (Tylenol) 650 mg PRN Q6HRS PRN PO PAIN / TEMP; Start 10/01/16 at 17:00 Multi-Ingredient Ointment (Analgesic [place]) 1 allison PRN QID PRN TP MUSCLE PAIN; Start 10/01/16 at 17:00 Al Hydroxide/Mg Hydroxide (Mylanta Plus Xs) 15 ml PRN AFTMEALHC PRN PO DYSPEPSIA; Start 10/01/16 at 17:00 Magnesium Hydroxide (Milk Of Magnesia) 2,400 mg PRN QHS PRN PO CONSTIPATION; Start 10/01/16 at 17:00 Donepezil HCl (Aricept) 2.5 mg HS PO ; Start 10/01/16 at 21:00; Stop 10/01/16 at 21:00; Status DC Mirtazapine (Remeron) 15 mg HS PO Last administered on 10/09/16 20:21; Start 10/01/16 at 21:00 Quetiapine Fumarate (SEROquel) 12.5 mg DAILY PO Last administered on 10/10/16 07:28; Start 10/02/16 at 09:00 Sertraline HCl (Zoloft) 50 mg DAILY PO Last administered on 10/10/16 07:28; Start 10/02/16 at 09:00 Memantine (Namenda) 5 mg DAILY PO Last administered on 10/04/16 08:51; Start 10/02/16 at 09:00; Stop 10/05/16 at 08:59; Status DC Memantine (Namenda) 5 mg BID PO Last administered on 10/06/16 21:21; Start at 21:00; Stop 10/06/16 at 21:00; Status DC Donepezil HCl (Aricept) 10 mg DAILY PO Last administered on 10/10/16 07:28; Start 10/02/16 at 09:00 Olanzapine (ZyPREXA ZYDIS) 2.5 mg PRN Q2HR PRN PO PSYCHOSIS Last administered on 10/10/16 07:29; Start 10/01/16 at 18:45 Simvastatin (Zocor) 20 mg HS PO Last administered on 10/09/16 20:21; Start 02/06 at 21:00 Non-Formulary Medication 1 tab DAILY PO ; Start 10/02/16 at 09:00; Status UNV Pantoprazole Sodium (Protonix) 40 mg DAILYAC PO Last administered on 10/10/16 07:28; Start 10/02/16 at 07:30 Linagliptin (Tradjenta) 5 mg DAILY PO Last administered on 10/10/16 07:28; Start 10/02/16 at 09:00 Triamcinolone Acetonide (Kenalog) 1 allison PRN DAILY PRN TP small amt to ears; Start 10/02/16 at 09:00 Non-Formulary Medication 1 tab DAILY .ROUTE ; Start 10/02/16 at 09:00; Status UNV Lisinopril (Prinivil) 20 mg DAILY PO Last administered on 10/10/16 07:28; Start 10/02/16 at 09:00 Hydrochlorothiazide (Microzide) 12.5 mg DAILY PO Last administered on 07:27; Start 10/02/16 at 09:00 Carbamide Peroxide (Debrox) 5 drop BID AU Last administered on 10/10/16 07:27 ; Start 10/04/16 at 21:00 Memantine (Namenda) 5 mg DAILY PO Last administered on 10/09/16 07:31; Start 10/07/16 at 09:00; Stop 10/10/16 at 08:59; Status DC Memantine (Namenda) 10 mg DAILY PO Last administered on 10/10/16 07:31; Start 10/10/16 at 09:00 Vitamin D (Vitamin D3) 50,000 unit WEEKLY PO Last administered on 10/07/16 15: 32; Start 10/07/16 at 17:00 Active Scripts Active Reported Seroquel (Quetiapine Fumarate) 25 Mg Tablet 12.5 Mg PO DAILY [Hycomine compound] 1 Tab DAILY Kenalog (Triamcinolone Acetonide) 100 Gm Aerosol 1 Allison TP PRN DAILY PRN Januvia (Sitagliptin Phosphate) 100 Mg Tablet 100 Mg PO DAILY Zocor (Simvastatin) 20 Mg Tablet 20 Mg PO HS Zoloft (Sertraline Hcl) 50 Mg Tablet 50 Mg PO DAILY Quetiapine Fumarate 25 Mg Tablet 25 Mg PO HS Omeprazole 40 Mg Capsule.dr 40 Mg PO DAILY Mirtazapine 15 Mg Tablet 15 Mg PO HS Donepezil Hcl 5 Mg Tablet 2.5 Mg PO HS Benazepril-Hctz 20-12.5 Mg Tab (Benazepril/Hydrochlorothiazide) 1 Each Tablet 1 Tab PO DAILY Diagnosis: Problems: (1) Dementia with behavioral disturbance (2) Anxiety disorder (3) Dementia, vascular, with delusions (4) Dementia, vascular, with depression (5) Dementia in Alzheimer's disease with delusions (6) Dementia in Alzheimer's disease with depression (7) Impulse control disorder PATRICK VELAZQUEZ MD Oct 10, 2016 19:48
[2016-10-10] MEDS: SIMVASTATIN 20 MG TABLET PO SCH (21:05)
[2016-10-10] MEDS: MIRTAZAPINE 15 MG TABLET PO SCH (21:05)
--- NOTE | 2016-10-10 23:36 | PN ---
DATE: 10/09/2016 PSYCHIATRIC PROGRESS NOTE This is a late entry of 10/09/2016 [place] elements not covered in my initial note. SUBJECTIVE: I met with the patient evening of 10/09/2016. She remains confused, forgetful, did not remember me even though I have seen her every day. Nursing staff noted she was increasingly agitated during the day at 19, received Zyprexa x 2, had a good night the previous evening. REVIEW OF SYSTEMS: No CV, , pulmonary, eye, ENT system symptoms on review. Reliability poor. MENTAL STATUS EXAM: Oriented to herself. Insight, judgment, recent and remote memory, attention, concentration, fund of knowledge poor, consistent with her diagnosis. LABORATORY DATA: Reviewed. IMPRESSION: Unchanged from initial note. PLAN: Increase Seroquel from 12.5 mg a.m., 25 mg at bedtime to 12.5 mg a.m. and noon 25 mg at bedtime. Gradually increase the Namenda, maintain Remeron, Aricept along with Zyprexa p.r.n. Adjust further as clinically indicated. I reviewed drug interactions, risk/benefit ratio favors no further change. MAN Rae VELAZQUEZ MD DR: VIRGINIE/madeleine JOB#: [id number] / [id number]
[2016-10-11 06:11] VITALS: BP 154/86
[2016-10-11] MEDS: hydroCHLOROthiazide 12.5 MG CAPSULE PO SCH (08:14)
[2016-10-11] MEDS: MEMANTINE 10 MG TABLET. PO SCH (08:15)
[2016-10-11] MEDS: SERTRALINE 50 MG TABLET. PO SCH (08:15)
[2016-10-11] MEDS: LISINOPRIL 20 MG TABLET PO SCH (08:15)
[2016-10-11] MEDS: LINAGLIPTIN 5 MG TABLET PO SCH (08:15)
[2016-10-11] MEDS: PANTOPRAZOLE 40 MG TABLET. PO SCH (08:16)
[2016-10-11] MEDS: QUEtiapine 25 MG TABLET. PO SCH ×3 (08:16→20:35)
[2016-10-11] MEDS: DONEPEZIL HCL 10 MG TABLET PO SCH (08:17)
[2016-10-11] MEDS: CARBAMIDE PEROXIDE 6.5% OTIC SOLUTION 15ML BOTTLE. AU SCH ×2 (08:17→21:00)
[2016-10-11] MEDS ORDERED: QUEtiapine 25 MG TABLET. PO SCH (12:00)
[2016-10-11 16:03] VITALS: BP 144/71
--- NOTE | 2016-10-11 19:46 | PDOC ---
Exam Pradip Demential Exam: Pradip Note: Please also refer to the separate dictated note~for this date of service dictated separately.~Patient seen individually. Discussed the patient with Nursing staff reviewed the chart.~Reviewed interim history and current functioning. Reviewed vital signs,~Labs/ Radiology~and current medications noted below. Continue current treatment with the changes noted in the dictated addendum note Assessment: Vital Signs: Vital Signs Date Time Temp Pulse Resp B/P (MAP) Pulse Ox O2 Delivery O2 Flow Rate FiO2 10/11/16 16:03 97.5 88 16 144/71 (95) 97 10/10/16 05:39 Room Air I&O Intake and Output 10/11/16 06:59 Intake Total 1380 ml Balance 1380 ml Intake Oral 1380 ml Labs: Laboratory Tests Test 10/11/16 07:59 Glucose (Fingerstick) 95 mg/dL (70-99) Current Medications: Meds: Current Medications Acetaminophen (Tylenol) 650 mg PRN Q6HRS PRN PO PAIN / TEMP; Start 10/01/16 at 17:00 Multi-Ingredient Ointment (Analgesic [place]) 1 allison PRN QID PRN TP MUSCLE PAIN; Start 10/01/16 at 17:00 Al Hydroxide/Mg Hydroxide (Mylanta Plus Xs) 15 ml PRN AFTMEALHC PRN PO DYSPEPSIA; Start 10/01/16 at 17:00 Magnesium Hydroxide (Milk Of Magnesia) 2,400 mg PRN QHS PRN PO CONSTIPATION; Start 10/01/16 at 17:00 Donepezil HCl (Aricept) 2.5 mg HS PO ; Start 10/01/16 at 21:00; Stop 10/01/16 at 21:00; Status DC Mirtazapine (Remeron) 15 mg HS PO Last administered on 10/10/16 21:05; Start 10/01/16 at 21:00 Quetiapine Fumarate (SEROquel) 12.5 mg DAILY PO Last administered on 10/10/16 07:28; Start 10/02/16 at 09:00; Stop 10/11/16 at 00:35; Status DC Sertraline HCl (Zoloft) 50 mg DAILY PO Last administered on 10/11/16 08:15; Start 10/02/16 at 09:00 Memantine (Namenda) 5 mg DAILY PO Last administered on 10/04/16 08:51; Start 10/02/16 at 09:00; Stop 10/05/16 at 08:59; Status DC Memantine (Namenda) 5 mg BID PO Last administered on 10/06/16 21:21; Start at 21:00; Stop 10/06/16 at 21:00; Status DC Donepezil HCl (Aricept) 10 mg DAILY PO Last administered on 10/11/16 08:17; Start 10/02/16 at 09:00 Olanzapine (ZyPREXA ZYDIS) 2.5 mg PRN Q2HR PRN PO PSYCHOSIS Last administered on 10/10/16 07:29; Start 10/01/16 at 18:45 Simvastatin (Zocor) 20 mg HS PO Last administered on 10/10/16 21:05; Start 02/06 at 21:00 Non-Formulary Medication 1 tab DAILY PO ; Start 10/02/16 at 09:00; Status UNV Pantoprazole Sodium (Protonix) 40 mg DAILYAC PO Last administered on 10/11/16 08:16; Start 10/02/16 at 07:30 Linagliptin (Tradjenta) 5 mg DAILY PO Last administered on 10/11/16 08:15; Start 10/02/16 at 09:00 Triamcinolone Acetonide (Kenalog) 1 allison PRN DAILY PRN TP small amt to ears; Start 10/02/16 at 09:00 Non-Formulary Medication 1 tab DAILY .ROUTE ; Start 10/02/16 at 09:00; Status UNV Lisinopril (Prinivil) 20 mg DAILY PO Last administered on 10/11/16 08:15; Start 10/02/16 at 09:00 Hydrochlorothiazide (Microzide) 12.5 mg DAILY PO Last administered on 08:14; Start 10/02/16 at 09:00 Carbamide Peroxide (Debrox) 5 drop BID AU Last administered on 10/11/16 08:17 ; Start 10/04/16 at 21:00 Memantine (Namenda) 5 mg DAILY PO Last administered on 10/09/16 07:31; Start 10/07/16 at 09:00; Stop 10/10/16 at 08:59; Status DC Memantine (Namenda) 10 mg DAILY PO Last administered on 10/11/16 08:15; Start 10/10/16 at 09:00 Vitamin D (Vitamin D3) 50,000 unit WEEKLY PO Last administered on 10/07/16 15: 32; Start 10/07/16 at 17:00 Quetiapine Fumarate (SEROquel) 12.5 mg NOON PO ; Start 10/11/16 at 12:00; Stop 10/11/16 at 12:00; Status DC Quetiapine Fumarate (SEROquel) 12.5 mg BID@0900,1200 PO Last administered on 11:41; Start 10/11/16 at 09:00; Stop 10/11/16 at 18:37; Status DC Quetiapine Fumarate (SEROquel) 12.5 mg NOON PO ; Start 10/12/16 at 12:00 Quetiapine Fumarate (SEROquel) 25 mg BID PO ; Start 10/11/16 at 21:00 Active Scripts Active Reported Seroquel (Quetiapine Fumarate) 25 Mg Tablet 12.5 Mg PO DAILY [Hycomine compound] 1 Tab DAILY Kenalog (Triamcinolone Acetonide) 100 Gm Aerosol 1 Allison TP PRN DAILY PRN Januvia (Sitagliptin Phosphate) 100 Mg Tablet 100 Mg PO DAILY Zocor (Simvastatin) 20 Mg Tablet 20 Mg PO HS Zoloft (Sertraline Hcl) 50 Mg Tablet 50 Mg PO DAILY Quetiapine Fumarate 25 Mg Tablet 25 Mg PO HS Omeprazole 40 Mg Capsule.dr 40 Mg PO DAILY Mirtazapine 15 Mg Tablet 15 Mg PO HS Donepezil Hcl 5 Mg Tablet 2.5 Mg PO HS Benazepril-Hctz 20-12.5 Mg Tab (Benazepril/Hydrochlorothiazide) 1 Each Tablet 1 Tab PO DAILY Diagnosis: Problems: (1) Dementia with behavioral disturbance (2) Anxiety disorder (3) Dementia, vascular, with delusions (4) Dementia, vascular, with depression (5) Dementia in Alzheimer's disease with delusions (6) Dementia in Alzheimer's disease with depression (7) Impulse control disorder PATRICK VELAZQUEZ MD Oct 11, 2016 19:46
[2016-10-11] MEDS: SIMVASTATIN 20 MG TABLET PO SCH (20:32)
[2016-10-11] MEDS: MIRTAZAPINE 15 MG TABLET PO SCH (20:32)
--- NOTE | 2016-10-12 00:16 | PN ---
DATE: 10/10/2016 This is a late entry for 10/10/2016 and covers elements not covered in my initial note of 10/10/2016. SUBJECTIVE: I met with the patient evening of 10/10/2016. The patient remains confused, forgetful, irritable in the afternoon, extremely obsessive, ruminative, repetitive with me as I met with her, asking about her discharge plans, which I discussed with her several times and she would forget moments later only to ask it again. REVIEW OF SYSTEMS: No CV, , pulmonary, eye, ENT system symptoms on review. Reliability poor. MENTAL STATUS EXAM: Oriented to herself. Insight, judgment, recent and remote memory, attention, concentration, fund of knowledge poor, consistent with her diagnosis as mentioned in my initial note. PLAN: Continue current psychotropics. Seroquel was increased. Reviewed drug ,interactions risk/benefit ratio favors no further change as of now. PATRICK VELAZQUEZ MD DR: VIRGINIE/madeleine JOB#: [id number] / [id number]
[2016-10-12 05:50] VITALS: BP 145/73
[2016-10-12] MEDS: LISINOPRIL 20 MG TABLET PO SCH (08:08)
[2016-10-12] MEDS: hydroCHLOROthiazide 12.5 MG CAPSULE PO SCH (08:09)
[2016-10-12] MEDS: PANTOPRAZOLE 40 MG TABLET. PO SCH (08:09)
[2016-10-12] MEDS: LINAGLIPTIN 5 MG TABLET PO SCH (08:09)
[2016-10-12] MEDS: SERTRALINE 50 MG TABLET. PO SCH (08:09)
[2016-10-12] MEDS: QUEtiapine 25 MG TABLET. PO SCH ×3 (08:09→19:55)
[2016-10-12] MEDS: MEMANTINE 10 MG TABLET. PO SCH (08:09)
[2016-10-12] MEDS: DONEPEZIL HCL 10 MG TABLET PO SCH (08:09)
[2016-10-12] MEDS: CARBAMIDE PEROXIDE 6.5% OTIC SOLUTION 15ML BOTTLE. AU SCH ×2 (09:00→10:42)
[2016-10-12 16:04] VITALS: BP 139/71
--- NOTE | 2016-10-12 18:43 | PDOC ---
Exam Pradip Demential Exam: Pradip Note: Please also refer to the separate dictated note~for this date of service dictated separately.~Patient seen individually. Discussed the patient with Nursing staff reviewed the chart.~Reviewed interim history and current functioning. Reviewed vital signs,~Labs/ Radiology~and current medications noted below. Continue current treatment with the changes noted in the dictated addendum note Assessment: Vital Signs: Vital Signs Date Time Temp Pulse Resp B/P (MAP) Pulse Ox O2 Delivery O2 Flow Rate FiO2 10/12/16 16:04 98.0 79 20 139/71 (93) 97 10/10/16 05:39 Room Air I&O Intake and Output 10/12/16 07:00 Intake Total 1080 ml Balance 1080 ml Intake Oral 1080 ml Labs: Laboratory Tests Test 10/12/16 07:25 Glucose (Fingerstick) 86 mg/dL (70-99) Current Medications: Meds: Current Medications Acetaminophen (Tylenol) 650 mg PRN Q6HRS PRN PO PAIN / TEMP; Start 10/01/16 at 17:00 Multi-Ingredient Ointment (Analgesic [place]) 1 allison PRN QID PRN TP MUSCLE PAIN; Start 10/01/16 at 17:00 Al Hydroxide/Mg Hydroxide (Mylanta Plus Xs) 15 ml PRN AFTMEALHC PRN PO DYSPEPSIA; Start 10/01/16 at 17:00 Magnesium Hydroxide (Milk Of Magnesia) 2,400 mg PRN QHS PRN PO CONSTIPATION; Start 10/01/16 at 17:00 Donepezil HCl (Aricept) 2.5 mg HS PO ; Start 10/01/16 at 21:00; Stop 10/01/16 at 21:00; Status DC Mirtazapine (Remeron) 15 mg HS PO Last administered on 10/11/16 20:32; Start 10/01/16 at 21:00 Quetiapine Fumarate (SEROquel) 12.5 mg DAILY PO Last administered on 10/10/16 07:28; Start 10/02/16 at 09:00; Stop 10/11/16 at 00:35; Status DC Sertraline HCl (Zoloft) 50 mg DAILY PO Last administered on 10/12/16 08:09; Start 10/02/16 at 09:00 Memantine (Namenda) 5 mg DAILY PO Last administered on 10/04/16 08:51; Start 10/02/16 at 09:00; Stop 10/05/16 at 08:59; Status DC Memantine (Namenda) 5 mg BID PO Last administered on 10/06/16 21:21; Start at 21:00; Stop 10/06/16 at 21:00; Status DC Donepezil HCl (Aricept) 10 mg DAILY PO Last administered on 10/12/16 08:09; Start 10/02/16 at 09:00 Olanzapine (ZyPREXA ZYDIS) 2.5 mg PRN Q2HR PRN PO PSYCHOSIS Last administered on 10/10/16 07:29; Start 10/01/16 at 18:45 Simvastatin (Zocor) 20 mg HS PO Last administered on 10/11/16 20:32; Start 02/06 at 21:00 Non-Formulary Medication 1 tab DAILY PO ; Start 10/02/16 at 09:00; Status UNV Pantoprazole Sodium (Protonix) 40 mg DAILYAC PO Last administered on 10/12/16 08:09; Start 10/02/16 at 07:30 Linagliptin (Tradjenta) 5 mg DAILY PO Last administered on 10/12/16 08:09; Start 10/02/16 at 09:00 Triamcinolone Acetonide (Kenalog) 1 allison PRN DAILY PRN TP small amt to ears; Start 10/02/16 at 09:00 Non-Formulary Medication 1 tab DAILY .ROUTE ; Start 10/02/16 at 09:00; Status UNV Lisinopril (Prinivil) 20 mg DAILY PO Last administered on 10/12/16 08:08; Start 10/02/16 at 09:00 Hydrochlorothiazide (Microzide) 12.5 mg DAILY PO Last administered on 08:09; Start 10/02/16 at 09:00 Carbamide Peroxide (Debrox) 5 drop BID AU Last administered on 10/11/16 08:17 ; Start 10/04/16 at 21:00; Stop 10/12/16 at 10:50; Status DC Memantine (Namenda) 5 mg DAILY PO Last administered on 10/09/16 07:31; Start 10/07/16 at 09:00; Stop 10/10/16 at 08:59; Status DC Memantine (Namenda) 10 mg DAILY PO Last administered on 10/12/16 08:09; Start 10/10/16 at 09:00 Vitamin D (Vitamin D3) 50,000 unit WEEKLY PO Last administered on 10/07/16 15: 32; Start 10/07/16 at 17:00 Quetiapine Fumarate (SEROquel) 12.5 mg NOON PO ; Start 10/11/16 at 12:00; Stop 10/11/16 at 12:00; Status DC Quetiapine Fumarate (SEROquel) 12.5 mg BID@0900,1200 PO Last administered on 11:41; Start 10/11/16 at 09:00; Stop 10/11/16 at 18:37; Status DC Quetiapine Fumarate (SEROquel) 12.5 mg NOON PO Last administered on 10/12/16 12:14; Start 10/12/16 at 12:00 Quetiapine Fumarate (SEROquel) 25 mg BID PO Last administered on 10/12/16 08: 09; Start 10/11/16 at 21:00 Active Scripts Active Reported Seroquel (Quetiapine Fumarate) 25 Mg Tablet 12.5 Mg PO DAILY [Hycomine compound] 1 Tab DAILY Kenalog (Triamcinolone Acetonide) 100 Gm Aerosol 1 Allison TP PRN DAILY PRN Januvia (Sitagliptin Phosphate) 100 Mg Tablet 100 Mg PO DAILY Zocor (Simvastatin) 20 Mg Tablet 20 Mg PO HS Zoloft (Sertraline Hcl) 50 Mg Tablet 50 Mg PO DAILY Quetiapine Fumarate 25 Mg Tablet 25 Mg PO HS Omeprazole 40 Mg Capsule.dr 40 Mg PO DAILY Mirtazapine 15 Mg Tablet 15 Mg PO HS Donepezil Hcl 5 Mg Tablet 2.5 Mg PO HS Benazepril-Hctz 20-12.5 Mg Tab (Benazepril/Hydrochlorothiazide) 1 Each Tablet 1 Tab PO DAILY Diagnosis: Problems: (1) Impulse control disorder (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
[2016-10-12] MEDS: MIRTAZAPINE 15 MG TABLET PO SCH (19:55)
[2016-10-12] MEDS: SIMVASTATIN 20 MG TABLET PO SCH (19:55)
[2016-10-12] MEDS: traZODone 50 MG TABLET. PO PRN (19:56)
--- NOTE | 2016-10-13 03:14 | PN ---
DATE: 10/11/2016 This is a late entry for 10/11/2016 and covers the elements not covered in my initial note. HISTORY OF PRESENT ILLNESS: I met with the patient in the evening of 10/11/2016. She remains quite forgetful, but very agitated if any mentioned this made of her memory deficits. She believes she can go home and take care of herself, do her own cooking, cleaning, grocery shopping, etc. I addressed this at great length with her, but very limited insight from her side. Otherwise, during the day, she has been calm, cooperative, per nursing report. REVIEW OF SYSTEMS: No CV, , pulmonary, eye, ENT system symptoms on review. Reliability poor. MENTAL STATUS EXAM: Oriented to herself. Insight, judgment, recent and remote memory, attention, concentration, fund of knowledge poor, consistent with her diagnosis mentioned in my initial note. PLAN: Increase morning Seroquel from 12.5 mg to 25 mg. Continue 12.5 at noon, 25 at bedtime, Namenda, Aricept, Remeron, Zoloft, along with Zyprexa p.r.n. Adjust as clinically indicated. PATRICK VELAZQUEZ MD DR: VIRGINIE/madeleine JOB#: [id number] / [id number]
[2016-10-13 06:22] VITALS: BP 145/73
[2016-10-13] MEDS: QUEtiapine 25 MG TABLET. PO SCH ×3 (07:49→20:04)
[2016-10-13] MEDS: LISINOPRIL 20 MG TABLET PO SCH (07:49)
[2016-10-13] MEDS: PANTOPRAZOLE 40 MG TABLET. PO SCH (07:49)
[2016-10-13] MEDS: MEMANTINE 10 MG TABLET. PO SCH (07:49)
[2016-10-13] MEDS: hydroCHLOROthiazide 12.5 MG CAPSULE PO SCH (07:49)
[2016-10-13] MEDS: SERTRALINE 50 MG TABLET. PO SCH (07:49)
[2016-10-13] MEDS: DONEPEZIL HCL 10 MG TABLET PO SCH (07:50)
[2016-10-13] MEDS: LINAGLIPTIN 5 MG TABLET PO SCH (07:50)
[2016-10-13 16:24] VITALS: BP 145/80
--- NOTE | 2016-10-13 18:28 | PDOC ---
Exam Pradip Demential Exam: Pradip Note: Please also refer to the separate dictated note~for this date of service dictated separately.~Patient seen individually. Discussed the patient with Nursing staff reviewed the chart.~Reviewed interim history and current functioning. Reviewed vital signs,~Labs/ Radiology~and current medications noted below. Continue current treatment with the changes noted in the dictated addendum note Assessment: Vital Signs: Vital Signs Date Time Temp Pulse Resp B/P (MAP) Pulse Ox O2 Delivery O2 Flow Rate FiO2 10/13/16 16:24 97.3 78 18 145/80 (101) 98 10/10/16 05:39 Room Air I&O Intake and Output 10/13/16 07:00 Intake Total 1380 ml Balance 1380 ml Intake Oral 1380 ml # Bowel Movements 1 Labs: Laboratory Tests Test 10/12/16 19:03 10/13/16 07:26 Glucose (Fingerstick) 162 mg/dL (70-99) H 102 mg/dL (70-99) H Current Medications: Meds: Current Medications Acetaminophen (Tylenol) 650 mg PRN Q6HRS PRN PO PAIN / TEMP; Start 10/01/16 at 17:00 Multi-Ingredient Ointment (Analgesic [place]) 1 allison PRN QID PRN TP MUSCLE PAIN; Start 10/01/16 at 17:00 Al Hydroxide/Mg Hydroxide (Mylanta Plus Xs) 15 ml PRN AFTMEALHC PRN PO DYSPEPSIA; Start 10/01/16 at 17:00 Magnesium Hydroxide (Milk Of Magnesia) 2,400 mg PRN QHS PRN PO CONSTIPATION; Start 10/01/16 at 17:00 Donepezil HCl (Aricept) 2.5 mg HS PO ; Start 10/01/16 at 21:00; Stop 10/01/16 at 21:00; Status DC Mirtazapine (Remeron) 15 mg HS PO Last administered on 10/12/16 19:55; Start 10/01/16 at 21:00 Quetiapine Fumarate (SEROquel) 12.5 mg DAILY PO Last administered on 10/10/16 07:28; Start 10/02/16 at 09:00; Stop 10/11/16 at 00:35; Status DC Sertraline HCl (Zoloft) 50 mg DAILY PO Last administered on 10/13/16 07:49; Start 10/02/16 at 09:00 Memantine (Namenda) 5 mg DAILY PO Last administered on 10/04/16 08:51; Start 10/02/16 at 09:00; Stop 10/05/16 at 08:59; Status DC Memantine (Namenda) 5 mg BID PO Last administered on 10/06/16 21:21; Start at 21:00; Stop 10/06/16 at 21:00; Status DC Donepezil HCl (Aricept) 10 mg DAILY PO Last administered on 10/13/16 07:50; Start 10/02/16 at 09:00 Olanzapine (ZyPREXA ZYDIS) 2.5 mg PRN Q2HR PRN PO PSYCHOSIS Last administered on 10/10/16 07:29; Start 10/01/16 at 18:45 Simvastatin (Zocor) 20 mg HS PO Last administered on 10/12/16 19:55; Start 02/06 at 21:00 Non-Formulary Medication 1 tab DAILY PO ; Start 10/02/16 at 09:00; Status UNV Pantoprazole Sodium (Protonix) 40 mg DAILYAC PO Last administered on 10/13/16 07:49; Start 10/02/16 at 07:30 Linagliptin (Tradjenta) 5 mg DAILY PO Last administered on 10/13/16 07:50; Start 10/02/16 at 09:00 Triamcinolone Acetonide (Kenalog) 1 allison PRN DAILY PRN TP small amt to ears; Start 10/02/16 at 09:00 Non-Formulary Medication 1 tab DAILY .ROUTE ; Start 10/02/16 at 09:00; Status UNV Lisinopril (Prinivil) 20 mg DAILY PO Last administered on 10/13/16 07:49; Start 10/02/16 at 09:00 Hydrochlorothiazide (Microzide) 12.5 mg DAILY PO Last administered on 07:49; Start 10/02/16 at 09:00 Carbamide Peroxide (Debrox) 5 drop BID AU Last administered on 10/11/16 08:17 ; Start 10/04/16 at 21:00; Stop 10/12/16 at 10:50; Status DC Memantine (Namenda) 5 mg DAILY PO Last administered on 10/09/16 07:31; Start 10/07/16 at 09:00; Stop 10/10/16 at 08:59; Status DC Memantine (Namenda) 10 mg DAILY PO Last administered on 10/13/16 07:49; Start 10/10/16 at 09:00 Vitamin D (Vitamin D3) 50,000 unit WEEKLY PO Last administered on 10/07/16 15: 32; Start 10/07/16 at 17:00 Quetiapine Fumarate (SEROquel) 12.5 mg NOON PO ; Start 10/11/16 at 12:00; Stop 10/11/16 at 12:00; Status DC Quetiapine Fumarate (SEROquel) 12.5 mg BID@0900,1200 PO Last administered on 11:41; Start 10/11/16 at 09:00; Stop 10/11/16 at 18:37; Status DC Quetiapine Fumarate (SEROquel) 12.5 mg NOON PO Last administered on 10/13/16 12:12; Start 10/12/16 at 12:00 Quetiapine Fumarate (SEROquel) 25 mg BID PO Last administered on 10/13/16 07: 49; Start 10/11/16 at 21:00 Trazodone HCl (Desyrel) 50 mg PRN QHS PRN PO INSOMNIA, MAY REPEAT X1 Last administered on 10/12/16 19:56; Start 10/12/16 at 19:00 Active Scripts Active Reported Seroquel (Quetiapine Fumarate) 25 Mg Tablet 12.5 Mg PO DAILY [Hycomine compound] 1 Tab DAILY Kenalog (Triamcinolone Acetonide) 100 Gm Aerosol 1 Allison TP PRN DAILY PRN Januvia (Sitagliptin Phosphate) 100 Mg Tablet 100 Mg PO DAILY Zocor (Simvastatin) 20 Mg Tablet 20 Mg PO HS Zoloft (Sertraline Hcl) 50 Mg Tablet 50 Mg PO DAILY Quetiapine Fumarate 25 Mg Tablet 25 Mg PO HS Omeprazole 40 Mg Capsule.dr 40 Mg PO DAILY Mirtazapine 15 Mg Tablet 15 Mg PO HS Donepezil Hcl 5 Mg Tablet 2.5 Mg PO HS Benazepril-Hctz 20-12.5 Mg Tab (Benazepril/Hydrochlorothiazide) 1 Each Tablet 1 Tab PO DAILY Diagnosis: Problems: (1) Impulse control disorder (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
[2016-10-13] MEDS: SIMVASTATIN 20 MG TABLET PO SCH (20:04)
[2016-10-13] MEDS: MIRTAZAPINE 15 MG TABLET PO SCH (20:04)
[2016-10-13] MEDS: traZODone 50 MG TABLET. PO PRN (20:05)
--- NOTE | 2016-10-14 02:04 | PN ---
DATE: 10/12/2016 PSYCHIATRIC PROGRESS NOTE This is a late entry for 10/12/2016, covers elements not covered in my initial note of 10/12/2016. SUBJECTIVE: I met with the patient in the evening of 10/12/2016. She was quite sarcastic early in the morning of 10/12/2016 per nursing report, but irritability is better. Slept 5-1/4 hours previous evening. REVIEW OF SYSTEMS: No CV, , pulmonary, eye, ENT system symptoms on review. Reliability poor. MENTAL STATUS EXAM: Oriented to herself. Insight, judgment, recent and remote memory, attention, concentration, fund of knowledge poor, consistent with her diagnosis. She is quite repetitive, persisting about discharge plans, believing she can live alone by herself, do her own grocery shopping, cooking, cleaning and everything else. Discussed at length about her limited insight into her memory deficits, diagnosis, medications, answered her questions, but she keeps going back to the fact that she feels she can do everything. LABORATORY DATA: Reviewed. IMPRESSION: Unchanged from initial note. PLAN: We will start trazodone 50 mg at bedtime p.r.n., may repeat x 1 for insomnia. Maintain the rest of psychotropics unchanged. Reviewed drug interactions, risk/benefit ratio of her psychotropics. PATIRCK VELAZQUEZ MD DR: VIRGINIE/madeleine JOB#: [id number] / [id number]
[2016-10-14 06:12] VITALS: BP 144/76
[2016-10-14] MEDS: LISINOPRIL 20 MG TABLET PO SCH (08:07)
[2016-10-14] MEDS: hydroCHLOROthiazide 12.5 MG CAPSULE PO SCH (08:07)
[2016-10-14] MEDS: MEMANTINE 10 MG TABLET. PO SCH (08:08)
[2016-10-14] MEDS: PANTOPRAZOLE 40 MG TABLET. PO SCH (08:08)
[2016-10-14] MEDS: LINAGLIPTIN 5 MG TABLET PO SCH (08:08)
[2016-10-14] MEDS: SERTRALINE 50 MG TABLET. PO SCH (08:08)
[2016-10-14] MEDS: QUEtiapine 25 MG TABLET. PO SCH ×3 (08:08→19:40)
[2016-10-14] MEDS: DONEPEZIL HCL 10 MG TABLET PO SCH (08:08)
[2016-10-14] MEDS: CHOLECALCIFEROL (VITAMIN D3) 50,000 UNIT CAPSULE PO SCH (08:11)
[2016-10-14 12:24] LABS: BACTERIA,URINE 0 /HPF (0-FEW); BILIRUBIN,URINE NEG (NEG); CLARITY,URINE CLEAR; COLOR,URINE STRAW; GLUCOSE,URINE NEG (NEG); NITRITE,URINE NEG (NEG); RBC,URINE OCC /HPF (0-2); SQUAMOUS EPITHELIAL CELL,UR FEW /LPF; UROBILINOGEN,URINE 0.2 mg/dL (0.2 mg/dL); WBC,URINE OCC /HPF (0-4)
[2016-10-14 16:10] VITALS: BP 159/75
[2016-10-14] MEDS: SIMVASTATIN 20 MG TABLET PO SCH (19:39)
[2016-10-14] MEDS: MIRTAZAPINE 15 MG TABLET PO SCH (19:40)
[2016-10-14] MEDS: traZODone 50 MG TABLET. PO SCH (19:40)
--- NOTE | 2016-10-14 20:36 | PDOC ---
Exam Pradip Demential Exam: Pradip Note: Please also refer to the separate dictated note~for this date of service dictated separately.~Patient seen individually. Discussed the patient with Nursing staff reviewed the chart.~Reviewed interim history and current functioning. Reviewed vital signs,~Labs/ Radiology~and current medications noted below. Continue current treatment with the changes noted in the dictated addendum note Assessment: Vital Signs: Vital Signs Date Time Temp Pulse Resp B/P (MAP) Pulse Ox O2 Delivery O2 Flow Rate FiO2 10/14/16 16:10 97.3 75 20 159/75 (103) 97 10/10/16 05:39 Room Air I&O Intake and Output 10/14/16 07:00 Intake Total 960 ml Balance 960 ml Intake Oral 960 ml Labs: Laboratory Tests Test 10/14/16 07:47 10/14/16 12:10 Glucose (Fingerstick) 113 mg/dL (70-99) H Urine Collection Type Clean catch Urine Color Straw Urine Clarity Clear Urine pH 6.5 Urine Specific [place] 1.010 Urine Protein Neg (NEG-TRACE) Urine Glucose (UA) Neg mg/dL (NEG) Urine Ketones (Stick) Neg mg/dL (NEG) Urine Blood Neg (NEG) Urine Nitrite Neg (NEG) Urine Bilirubin Neg (NEG) Urine Urobilinogen Dipstick 0.2 mg/dL (0.2 mg/dL) Urine Leukocyte Esterase Neg (NEG) Urine RBC Occ /HPF (0-2) Urine WBC Occ /HPF (0-4) Urine Squamous Epithelial Cells Few /LPF Urine Bacteria 0 /HPF (0-FEW) Current Medications: Meds: Current Medications Acetaminophen (Tylenol) 650 mg PRN Q6HRS PRN PO PAIN / TEMP; Start 10/01/16 at 17:00 Multi-Ingredient Ointment (Analgesic [place]) 1 allison PRN QID PRN TP MUSCLE PAIN; Start 10/01/16 at 17:00 Al Hydroxide/Mg Hydroxide (Mylanta Plus Xs) 15 ml PRN AFTMEALHC PRN PO DYSPEPSIA; Start 10/01/16 at 17:00 Magnesium Hydroxide (Milk Of Magnesia) 2,400 mg PRN QHS PRN PO CONSTIPATION; Start 10/01/16 at 17:00 Donepezil HCl (Aricept) 2.5 mg HS PO ; Start 10/01/16 at 21:00; Stop 10/01/16 at 21:00; Status DC Mirtazapine (Remeron) 15 mg HS PO Last administered on 10/14/16 19:40; Start 10/01/16 at 21:00 Quetiapine Fumarate (SEROquel) 12.5 mg DAILY PO Last administered on 10/10/16 07:28; Start 10/02/16 at 09:00; Stop 10/11/16 at 00:35; Status DC Sertraline HCl (Zoloft) 50 mg DAILY PO Last administered on 10/14/16 08:08; Start 10/02/16 at 09:00 Memantine (Namenda) 5 mg DAILY PO Last administered on 10/04/16 08:51; Start 10/02/16 at 09:00; Stop 10/05/16 at 08:59; Status DC Memantine (Namenda) 5 mg BID PO Last administered on 10/06/16 21:21; Start at 21:00; Stop 10/06/16 at 21:00; Status DC Donepezil HCl (Aricept) 10 mg DAILY PO Last administered on 10/14/16 08:08; Start 10/02/16 at 09:00 Olanzapine (ZyPREXA ZYDIS) 2.5 mg PRN Q2HR PRN PO PSYCHOSIS Last administered on 10/10/16 07:29; Start 10/01/16 at 18:45 Simvastatin (Zocor) 20 mg HS PO Last administered on 10/13/16 20:04; Start 02/06 at 21:00; Stop 10/14/16 at 11:40; Status DC Non-Formulary Medication 1 tab DAILY PO ; Start 10/02/16 at 09:00; Status UNV Pantoprazole Sodium (Protonix) 40 mg DAILYAC PO Last administered on 10/14/16 08:08; Start 10/02/16 at 07:30 Linagliptin (Tradjenta) 5 mg DAILY PO Last administered on 10/14/16 08:08; Start 10/02/16 at 09:00 Triamcinolone Acetonide (Kenalog) 1 allison PRN DAILY PRN TP small amt to ears; Start 10/02/16 at 09:00 Non-Formulary Medication 1 tab DAILY .ROUTE ; Start 10/02/16 at 09:00; Status UNV Lisinopril (Prinivil) 20 mg DAILY PO Last administered on 10/14/16 08:07; Start 10/02/16 at 09:00 Hydrochlorothiazide (Microzide) 12.5 mg DAILY PO Last administered on 08:07; Start 10/02/16 at 09:00 Carbamide Peroxide (Debrox) 5 drop BID AU Last administered on 10/11/16 08:17 ; Start 10/04/16 at 21:00; Stop 10/12/16 at 10:50; Status DC Memantine (Namenda) 5 mg DAILY PO Last administered on 10/09/16 07:31; Start 10/07/16 at 09:00; Stop 10/10/16 at 08:59; Status DC Memantine (Namenda) 10 mg DAILY PO Last administered on 10/14/16 08:08; Start 10/10/16 at 09:00 Vitamin D (Vitamin D3) 50,000 unit WEEKLY PO Last administered on 10/14/16 08: 11; Start 10/07/16 at 17:00 Quetiapine Fumarate (SEROquel) 12.5 mg NOON PO ; Start 10/11/16 at 12:00; Stop 10/11/16 at 12:00; Status DC Quetiapine Fumarate (SEROquel) 12.5 mg BID@0900,1200 PO Last administered on 11:41; Start 10/11/16 at 09:00; Stop 10/11/16 at 18:37; Status DC Quetiapine Fumarate (SEROquel) 12.5 mg NOON PO Last administered on 10/14/16 12:06; Start 10/12/16 at 12:00 Quetiapine Fumarate (SEROquel) 25 mg BID PO Last administered on 10/14/16 19: 40; Start 10/11/16 at 21:00 Trazodone HCl (Desyrel) 50 mg PRN QHS PRN PO INSOMNIA Last administered on 10/13 20:05; Start 10/12/16 at 19:00 Atorvastatin Calcium (Lipitor) 20 mg QHS PO ; Start 8/24/17 at 21:00; Stop at 21:00; Status DC Simvastatin (Zocor) 40 mg HS PO Last administered on 10/14/16 19:39; Start at 21:00 Trazodone HCl (Desyrel) 50 mg QHS PO Last administered on 10/14/16 19:40; Start 10/14/16 at 21:00 Active Scripts Active Reported Seroquel (Quetiapine Fumarate) 25 Mg Tablet 12.5 Mg PO DAILY [Hycomine compound] 1 Tab DAILY Kenalog (Triamcinolone Acetonide) 100 Gm Aerosol 1 Allison TP PRN DAILY PRN Januvia (Sitagliptin Phosphate) 100 Mg Tablet 100 Mg PO DAILY Zocor (Simvastatin) 20 Mg Tablet 20 Mg PO HS Zoloft (Sertraline Hcl) 50 Mg Tablet 50 Mg PO DAILY Quetiapine Fumarate 25 Mg Tablet 25 Mg PO HS Omeprazole 40 Mg Capsule.dr 40 Mg PO DAILY Mirtazapine 15 Mg Tablet 15 Mg PO HS Donepezil Hcl 5 Mg Tablet 2.5 Mg PO HS Benazepril-Hctz 20-12.5 Mg Tab (Benazepril/Hydrochlorothiazide) 1 Each Tablet 1 Tab PO DAILY Diagnosis: Problems: (1) Dementia with behavioral disturbance (2) Anxiety disorder (3) Dementia, vascular, with delusions (4) Dementia, vascular, with depression (5) Dementia in Alzheimer's disease with delusions (6) Dementia in Alzheimer's disease with depression (7) Impulse control disorder PATRICK VELAZQUEZ MD Oct 14, 2016 20:36
[2016-10-14] MEDS ORDERED: ATORVASTATIN CALCIUM 20 MG TABLET PO SCH (21:00)
[2016-10-14] MEDS: traZODone 50 MG TABLET. PO PRN (21:32)
--- NOTE | 2016-10-15 00:54 | PN ---
DATE: 10/13/2016 PSYCHIATRIC PROGRESS NOTE This late entry 10/13/2016, covers elements not covered in my initial note of 10/13/2016. I met the patient in the evening of 10/13/2016. The patient remains confused, slept 5-3/4 hours, the previous evening, forgetful, very anxious, repetitive about being discharged. she believes she can take care of everything at home by herself. I processed this at some length with her. She had already forgotten what I have discussed about this every evening when I meet with her. She is less sarcastic per nursing report, wandering up and down the hallways, doing "laps" per nursing report. Reportedly, her daughter visited, left crying because of the mother's confusion. The patient is repeatedly stating she should not be here, can live all by herself. REVIEW OF SYSTEMS: No CV, , pulmonary, eye, ENT system symptoms on review. Reliability poor. MENTAL STATUS EXAM: Oriented to herself and situation. Insight, judgment, recent memory is impaired. Language function intact. Attention span short. Mood and affect somewhat anxious, labile, but she was more pleasant, verbal, smiling as I met with her the evening of 10/13/2016. No suicidal or homicidal ideation. IMPRESSION: Unchanged from initial note. PLAN: Continue current psychotropics, may need to increase Zoloft further in due course and/or Seroquel, the rest remains unchanged for now reviewed drug interactions risk/benefit ratio favors no further change. PATRICK VELAZQUEZ MD DR: VIRGINIE/madeleine JOB#: [id number] / [id number]
[2016-10-15 05:58] VITALS: BP 155/72
--- NOTE | 2016-10-15 10:08 | PDOC ---
Exam Pradip Demential Exam: Pradip Note: Please also refer to the separate dictated note~for this date of service dictated separately.~Patient seen individually. Discussed the patient with Nursing staff reviewed the chart.~Reviewed interim history and current functioning. Reviewed vital signs,~Labs/ Radiology~and current medications noted below. Continue current treatment with the changes noted in the dictated addendum note Assessment: Vital Signs: Vital Signs Date Time Temp Pulse Resp B/P (MAP) Pulse Ox O2 Delivery O2 Flow Rate FiO2 10/15/16 05:58 97.7 80 20 155/72 (99) 97 10/10/16 05:39 Room Air I&O Intake and Output 10/15/16 07:00 Intake Total 1320 ml Balance 1320 ml Intake Oral 1320 ml # Bowel Movements 1 Labs: Laboratory Tests Test 10/14/16 12:10 10/15/16 07:46 Urine Collection Type Clean catch Urine Color Straw Urine Clarity Clear Urine pH 6.5 Urine Specific [place] 1.010 Urine Protein Neg (NEG-TRACE) Urine Glucose (UA) Neg mg/dL (NEG) Urine Ketones (Stick) Neg mg/dL (NEG) Urine Blood Neg (NEG) Urine Nitrite Neg (NEG) Urine Bilirubin Neg (NEG) Urine Urobilinogen Dipstick 0.2 mg/dL (0.2 mg/dL) Urine Leukocyte Esterase Neg (NEG) Urine RBC Occ /HPF (0-2) Urine WBC Occ /HPF (0-4) Urine Squamous Epithelial Cells Few /LPF Urine Bacteria 0 /HPF (0-FEW) Glucose (Fingerstick) 98 mg/dL (70-99) Current Medications: Meds: Current Medications Acetaminophen (Tylenol) 650 mg PRN Q6HRS PRN PO PAIN / TEMP; Start 10/01/16 at 17:00 Multi-Ingredient Ointment (Analgesic [place]) 1 allison PRN QID PRN TP MUSCLE PAIN; Start 10/01/16 at 17:00 Al Hydroxide/Mg Hydroxide (Mylanta Plus Xs) 15 ml PRN AFTMEALHC PRN PO DYSPEPSIA; Start 10/01/16 at 17:00 Magnesium Hydroxide (Milk Of Magnesia) 2,400 mg PRN QHS PRN PO CONSTIPATION; Start 10/01/16 at 17:00 Donepezil HCl (Aricept) 2.5 mg HS PO ; Start 10/01/16 at 21:00; Stop 10/01/16 at 21:00; Status DC Mirtazapine (Remeron) 15 mg HS PO Last administered on 10/14/16 19:40; Start 10/01/16 at 21:00 Quetiapine Fumarate (SEROquel) 12.5 mg DAILY PO Last administered on 10/10/16 07:28; Start 10/02/16 at 09:00; Stop 10/11/16 at 00:35; Status DC Sertraline HCl (Zoloft) 50 mg DAILY PO Last administered on 10/14/16 08:08; Start 10/02/16 at 09:00 Memantine (Namenda) 5 mg DAILY PO Last administered on 10/04/16 08:51; Start 10/02/16 at 09:00; Stop 10/05/16 at 08:59; Status DC Memantine (Namenda) 5 mg BID PO Last administered on 10/06/16 21:21; Start at 21:00; Stop 10/06/16 at 21:00; Status DC Donepezil HCl (Aricept) 10 mg DAILY PO Last administered on 10/14/16 08:08; Start 10/02/16 at 09:00 Olanzapine (ZyPREXA ZYDIS) 2.5 mg PRN Q2HR PRN PO PSYCHOSIS Last administered on 10/10/16 07:29; Start 10/01/16 at 18:45 Simvastatin (Zocor) 20 mg HS PO Last administered on 10/13/16 20:04; Start 02/06 at 21:00; Stop 10/14/16 at 11:40; Status DC Non-Formulary Medication 1 tab DAILY PO ; Start 10/02/16 at 09:00; Status UNV Pantoprazole Sodium (Protonix) 40 mg DAILYAC PO Last administered on 10/14/16 08:08; Start 10/02/16 at 07:30 Linagliptin (Tradjenta) 5 mg DAILY PO Last administered on 10/14/16 08:08; Start 10/02/16 at 09:00 Triamcinolone Acetonide (Kenalog) 1 allison PRN DAILY PRN TP small amt to ears; Start 10/02/16 at 09:00 Non-Formulary Medication 1 tab DAILY .ROUTE ; Start 10/02/16 at 09:00; Status UNV Lisinopril (Prinivil) 20 mg DAILY PO Last administered on 10/14/16 08:07; Start 10/02/16 at 09:00 Hydrochlorothiazide (Microzide) 12.5 mg DAILY PO Last administered on 08:07; Start 10/02/16 at 09:00 Carbamide Peroxide (Debrox) 5 drop BID AU Last administered on 10/11/16 08:17 ; Start 10/04/16 at 21:00; Stop 10/12/16 at 10:50; Status DC Memantine (Namenda) 5 mg DAILY PO Last administered on 10/09/16 07:31; Start 10/07/16 at 09:00; Stop 10/10/16 at 08:59; Status DC Memantine (Namenda) 10 mg DAILY PO Last administered on 10/14/16 08:08; Start 10/10/16 at 09:00 Vitamin D (Vitamin D3) 50,000 unit WEEKLY PO Last administered on 10/14/16 08: 11; Start 10/07/16 at 17:00 Quetiapine Fumarate (SEROquel) 12.5 mg NOON PO ; Start 10/11/16 at 12:00; Stop 10/11/16 at 12:00; Status DC Quetiapine Fumarate (SEROquel) 12.5 mg BID@0900,1200 PO Last administered on 11:41; Start 10/11/16 at 09:00; Stop 10/11/16 at 18:37; Status DC Quetiapine Fumarate (SEROquel) 12.5 mg NOON PO Last administered on 10/14/16 12:06; Start 10/12/16 at 12:00 Quetiapine Fumarate (SEROquel) 25 mg BID PO Last administered on 10/14/16 19: 40; Start 10/11/16 at 21:00 Trazodone HCl (Desyrel) 50 mg PRN QHS PRN PO INSOMNIA Last administered on 10/14 21:32; Start 10/12/16 at 19:00 Atorvastatin Calcium (Lipitor) 20 mg QHS PO ; Start 10/14/16 at 21:00; Stop at 21:00; Status DC Simvastatin (Zocor) 40 mg HS PO Last administered on 10/14/16 19:39; Start at 21:00 Trazodone HCl (Desyrel) 50 mg QHS PO Last administered on 10/14/16 19:40; Start 10/14/16 at 21:00 Active Scripts Active Reported Seroquel (Quetiapine Fumarate) 25 Mg Tablet 12.5 Mg PO DAILY [Hycomine compound] 1 Tab DAILY Kenalog (Triamcinolone Acetonide) 100 Gm Aerosol 1 Allison TP PRN DAILY PRN Januvia (Sitagliptin Phosphate) 100 Mg Tablet 100 Mg PO DAILY Zocor (Simvastatin) 20 Mg Tablet 20 Mg PO HS Zoloft (Sertraline Hcl) 50 Mg Tablet 50 Mg PO DAILY Quetiapine Fumarate 25 Mg Tablet 25 Mg PO HS Omeprazole 40 Mg Capsule.dr 40 Mg PO DAILY Mirtazapine 15 Mg Tablet 15 Mg PO HS Donepezil Hcl 5 Mg Tablet 2.5 Mg PO HS Benazepril-Hctz 20-12.5 Mg Tab (Benazepril/Hydrochlorothiazide) 1 Each Tablet 1 Tab PO DAILY Diagnosis: Problems: (1) Impulse control disorder (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
[2016-10-15] MEDS: PANTOPRAZOLE 40 MG TABLET. PO SCH (10:13)
[2016-10-15] MEDS: MEMANTINE 10 MG TABLET. PO SCH (10:13)
[2016-10-15] MEDS: QUEtiapine 25 MG TABLET. PO SCH ×3 (10:13→19:49)
[2016-10-15] MEDS: SERTRALINE 50 MG TABLET. PO SCH (10:13)
[2016-10-15] MEDS: LINAGLIPTIN 5 MG TABLET PO SCH (10:14)
[2016-10-15] MEDS: DONEPEZIL HCL 10 MG TABLET PO SCH (10:14)
[2016-10-15] MEDS: LISINOPRIL 20 MG TABLET PO SCH (10:14)
[2016-10-15] MEDS: hydroCHLOROthiazide 12.5 MG CAPSULE PO SCH (10:14)
[2016-10-15 15:51] VITALS: BP 117/70
--- NOTE | 2016-10-15 18:45 | PN ---
DATE: 10/14/2016 This note covers the elements not covered in my initial note of 10/14/2016. SUBJECTIVE: The patient was staffed at treatment team meeting with the entire team, morning of 10/14/2016, met with her on 2 separate occasions evening of 10/14/2016. Reviewed the patient's history, diagnosis. It was remarkable that this evening as I met with her, she was able to remember my name referred to me accurately, seem to remember a conversation from the first visit well into the second visit, all of which is some improvement as I see it. REVIEW OF SYSTEMS: No CV, , pulmonary, eye, ENT system symptoms on review. Reliability poor. MENTAL STATUS EXAM: Oriented to herself. Insight, judgment, recent memory is impaired. Language function intact. Attention span short. Mood and affect showing some improvement. Still anxious, obsessive, repetitively asking about discharge plans that I addressed with her several times. LABORATORY DATA: Reviewed. IMPRESSION: Unchanged from initial note. PLAN: Continue current psychotropics mentioned in my initial note, reviewed drug interactions, risk/benefit ratio favors no further changes of now. MAN Rae VELAZQUEZ MD DR: VIRGINIE/madeleine JOB#: [id number] / [id number]
--- NOTE | 2016-10-15 19:47 | PDOC ---
Exam Pradip Demential Exam: Pradip Note: Please also refer to the separate dictated note~for this date of service dictated separately.~Patient seen individually. Discussed the patient with Nursing staff reviewed the chart.~Reviewed interim history and current functioning. Reviewed vital signs,~Labs/ Radiology~and current medications noted below. Continue current treatment with the changes noted in the dictated addendum note Assessment: Vital Signs: Vital Signs Date Time Temp Pulse Resp B/P (MAP) Pulse Ox O2 Delivery O2 Flow Rate FiO2 10/15/16 15:51 97.0 97 20 117/70 (86) 97 10/10/16 05:39 Room Air I&O Intake and Output 10/15/16 06:59 Intake Total 1320 ml Balance 1320 ml Intake Oral 1320 ml # Bowel Movements 1 Labs: Laboratory Tests Test 10/15/16 07:46 Glucose (Fingerstick) 98 mg/dL (70-99) Current Medications: Meds: Current Medications Acetaminophen (Tylenol) 650 mg PRN Q6HRS PRN PO PAIN / TEMP; Start 10/01/16 at 17:00 Multi-Ingredient Ointment (Analgesic [place]) 1 allison PRN QID PRN TP MUSCLE PAIN; Start 10/01/16 at 17:00 Al Hydroxide/Mg Hydroxide (Mylanta Plus Xs) 15 ml PRN AFTMEALHC PRN PO DYSPEPSIA; Start 10/01/16 at 17:00 Magnesium Hydroxide (Milk Of Magnesia) 2,400 mg PRN QHS PRN PO CONSTIPATION; Start 10/01/16 at 17:00 Donepezil HCl (Aricept) 2.5 mg HS PO ; Start 10/01/16 at 21:00; Stop 10/01/16 at 21:00; Status DC Mirtazapine (Remeron) 15 mg HS PO Last administered on 10/14/16 19:40; Start 10/01/16 at 21:00 Quetiapine Fumarate (SEROquel) 12.5 mg DAILY PO Last administered on 10/10/16 07:28; Start 10/02/16 at 09:00; Stop 10/11/16 at 00:35; Status DC Sertraline HCl (Zoloft) 50 mg DAILY PO Last administered on 10/15/16 10:13; Start 10/02/16 at 09:00 Memantine (Namenda) 5 mg DAILY PO Last administered on 10/04/16 08:51; Start 10/02/16 at 09:00; Stop 10/05/16 at 08:59; Status DC Memantine (Namenda) 5 mg BID PO Last administered on 10/06/16 21:21; Start at 21:00; Stop 10/06/16 at 21:00; Status DC Donepezil HCl (Aricept) 10 mg DAILY PO Last administered on 10/15/16 10:14; Start 10/02/16 at 09:00 Olanzapine (ZyPREXA ZYDIS) 2.5 mg PRN Q2HR PRN PO PSYCHOSIS Last administered on 10/10/16 07:29; Start 10/01/16 at 18:45 Simvastatin (Zocor) 20 mg HS PO Last administered on 10/13/16 20:04; Start 02/06 at 21:00; Stop 10/14/16 at 11:40; Status DC Non-Formulary Medication 1 tab DAILY PO ; Start 10/02/16 at 09:00; Status UNV Pantoprazole Sodium (Protonix) 40 mg DAILYAC PO Last administered on 10/15/16 10:13; Start 10/02/16 at 07:30 Linagliptin (Tradjenta) 5 mg DAILY PO Last administered on 10/15/16 10:14; Start 10/02/16 at 09:00 Triamcinolone Acetonide (Kenalog) 1 allison PRN DAILY PRN TP small amt to ears; Start 10/02/16 at 09:00 Non-Formulary Medication 1 tab DAILY .ROUTE ; Start 10/02/16 at 09:00; Status UNV Lisinopril (Prinivil) 20 mg DAILY PO Last administered on 10/15/16 10:14; Start 10/02/16 at 09:00 Hydrochlorothiazide (Microzide) 12.5 mg DAILY PO Last administered on 10:14; Start 10/02/16 at 09:00 Carbamide Peroxide (Debrox) 5 drop BID AU Last administered on 10/11/16 08:17 ; Start 10/04/16 at 21:00; Stop 10/12/16 at 10:50; Status DC Memantine (Namenda) 5 mg DAILY PO Last administered on 10/09/16 07:31; Start 10/07/16 at 09:00; Stop 10/10/16 at 08:59; Status DC Memantine (Namenda) 10 mg DAILY PO Last administered on 10/15/16 10:13; Start 10/10/16 at 09:00 Vitamin D (Vitamin D3) 50,000 unit WEEKLY PO Last administered on 10/14/16 08: 11; Start 10/07/16 at 17:00 Quetiapine Fumarate (SEROquel) 12.5 mg NOON PO ; Start 10/11/16 at 12:00; Stop 10/11/16 at 12:00; Status DC Quetiapine Fumarate (SEROquel) 12.5 mg BID@0900,1200 PO Last administered on 11:41; Start 10/11/16 at 09:00; Stop 10/11/16 at 18:37; Status DC Quetiapine Fumarate (SEROquel) 12.5 mg NOON PO Last administered on 10/15/16 14:00; Start 10/12/16 at 12:00 Quetiapine Fumarate (SEROquel) 25 mg BID PO Last administered on 10/15/16 10: 13; Start 10/11/16 at 21:00 Trazodone HCl (Desyrel) 50 mg PRN QHS PRN PO INSOMNIA Last administered on 10/14 21:32; Start 10/12/16 at 19:00 Atorvastatin Calcium (Lipitor) 20 mg QHS PO ; Start 10/14/16 at 21:00; Stop at 21:00; Status DC Simvastatin (Zocor) 40 mg HS PO Last administered on 10/14/16 19:39; Start at 21:00 Trazodone HCl (Desyrel) 50 mg QHS PO Last administered on 10/14/16 19:40; Start 10/14/16 at 21:00 Active Scripts Active Reported Seroquel (Quetiapine Fumarate) 25 Mg Tablet 12.5 Mg PO DAILY [Hycomine compound] 1 Tab DAILY Kenalog (Triamcinolone Acetonide) 100 Gm Aerosol 1 Allison TP PRN DAILY PRN Januvia (Sitagliptin Phosphate) 100 Mg Tablet 100 Mg PO DAILY Zocor (Simvastatin) 20 Mg Tablet 20 Mg PO HS Zoloft (Sertraline Hcl) 50 Mg Tablet 50 Mg PO DAILY Quetiapine Fumarate 25 Mg Tablet 25 Mg PO HS Omeprazole 40 Mg Capsule.dr 40 Mg PO DAILY Mirtazapine 15 Mg Tablet 15 Mg PO HS Donepezil Hcl 5 Mg Tablet 2.5 Mg PO HS Benazepril-Hctz 20-12.5 Mg Tab (Benazepril/Hydrochlorothiazide) 1 Each Tablet 1 Tab PO DAILY Diagnosis: Problems: (1) Dementia with behavioral disturbance (2) Anxiety disorder (3) Dementia, vascular, with delusions (4) Dementia, vascular, with depression (5) Dementia in Alzheimer's disease with delusions (6) Dementia in Alzheimer's disease with depression (7) Impulse control disorder PATRICK VELAZQUEZ MD Oct 15, 2016 19:46
[2016-10-15] MEDS: MIRTAZAPINE 15 MG TABLET PO SCH (19:49)
[2016-10-15] MEDS: traZODone 50 MG TABLET. PO SCH (19:49)
[2016-10-15] MEDS: SIMVASTATIN 20 MG TABLET PO SCH (19:50)
--- NOTE | 2016-10-16 04:11 | PN ---
DATE: 10/15/2016 PSYCHIATRIC PROGRESS NOTE This note covers elements not covered in my initial note of 10/15. SUBJECTIVE: The patient was seen individually in the morning of 10/15. She has been fairly calm, compliant, confused, and forgetful. Like yesterday, she remembered my name this morning, which is quite surprising. REVIEW OF SYSTEMS: No CV, , eye, ENT, or pulmonary system symptoms on review. Reliability varies. MENTAL STATUS EXAM: Oriented to herself and situation. Speech is coherent, abstraction fair, computation impaired, language function intact, attention span short. Mood and affect, she is still somewhat anxious, repetitive, wanting to know about discharge. LABORATORY DATA: Reviewed. IMPRESSION: Unchanged from initial note. PLAN: Continue current psychotropics mentioned in my initial note. Reviewed drug interactions. Risk and benefit ratio favors no change at this time. MAN Rae VELAZQUEZ MD DR: VIRGINIE/madeleine JOB#: [id number] / [id number]
[2016-10-16 06:00] VITALS: BP 157/84
[2016-10-16 08:08] LABS: BASO % 1 % (0-3); EOS # 0.2 x10^3/uL (0.0-0.7); EOS % 3 % (0-3); HEMATOCRIT 36.3 % (36.0-47.0); LYMPH # 1.3 x10^3/uL (1.0-4.8); LYMPH % 20 % (24-48); MEAN CORPUSCULAR HEMOGLOBIN 27 pg (25-35); MEAN CORPUSCULAR HGB CONC 33 g/dL (31-37); MEAN CORPUSCULAR VOLUME 83 fL (79-100); MONO # 0.5 x10^3/uL (0.0-1.1); MONO % 7 % (0-9); NEUT # 4.4 x10^3uL (1.8-7.7); NEUT % 69 % (31-73); PLATELET COUNT 211 x10^3/uL (140-400); RED BLOOD COUNT 4.38 x10^6/uL (3.50-5.40); RED CELL DISTRIBUTION WIDTH 14.1 % (11.5-14.5); WHITE BLOOD COUNT 6.4 x10^3/uL (4.0-11.0)
[2016-10-16 08:21] LABS: ALBUMIN/GLOBULIN RATIO 0.8 (1.0-1.7); CALCIUM 8.9 mg/dL (8.5-10.1); GFR 65.9; MAGNESIUM 2.2 mg/dL (1.8-2.4); POTASSIUM 4.1 mmol/L (3.5-5.1); TOTAL BILIRUBIN 0.3 mg/dL (0.2-1.0)
[2016-10-16] MEDS: DONEPEZIL HCL 10 MG TABLET PO SCH (08:21)
[2016-10-16] MEDS: LISINOPRIL 20 MG TABLET PO SCH (08:21)
[2016-10-16] MEDS: SERTRALINE 50 MG TABLET. PO SCH (08:21)
[2016-10-16] MEDS: hydroCHLOROthiazide 12.5 MG CAPSULE PO SCH (08:21)
[2016-10-16] MEDS: PANTOPRAZOLE 40 MG TABLET. PO SCH (08:23)
[2016-10-16] MEDS: MEMANTINE 10 MG TABLET. PO SCH (08:23)
[2016-10-16] MEDS: LINAGLIPTIN 5 MG TABLET PO SCH (08:23)
[2016-10-16] MEDS: QUEtiapine 25 MG TABLET. PO SCH ×3 (08:23→19:37)
[2016-10-16] MEDS ORDERED: POLYVINYL ALCOHOL 1.4% OPHTH SOLUTION 15ML BOTTLE. OU PRN (13:30)
[2016-10-16 15:33] VITALS: BP 117/63
[2016-10-16] MEDS: SIMVASTATIN 20 MG TABLET PO SCH (19:37)
[2016-10-16] MEDS: traZODone 50 MG TABLET. PO SCH (19:37)
[2016-10-16] MEDS: MIRTAZAPINE 15 MG TABLET PO SCH (19:37)
[2016-10-17 06:32] VITALS: BP 154/85
[2016-10-17] MEDS: SERTRALINE 50 MG TABLET. PO SCH (07:53)
[2016-10-17] MEDS: hydroCHLOROthiazide 12.5 MG CAPSULE PO SCH (07:53)
[2016-10-17] MEDS: LINAGLIPTIN 5 MG TABLET PO SCH (07:53)
[2016-10-17] MEDS: PANTOPRAZOLE 40 MG TABLET. PO SCH (07:53)
[2016-10-17] MEDS: QUEtiapine 25 MG TABLET. PO SCH ×3 (07:53→20:39)
[2016-10-17] MEDS: DONEPEZIL HCL 10 MG TABLET PO SCH (07:54)
[2016-10-17] MEDS: LISINOPRIL 20 MG TABLET PO SCH (07:54)
[2016-10-17] MEDS: MEMANTINE 10 MG TABLET. PO SCH (07:54)
[2016-10-17 16:38] VITALS: BP 134/71
--- NOTE | 2016-10-17 19:39 | PDOC ---
Exam Pradip Demential Exam: Pradip Note: Please also refer to the separate dictated note~for this date of service dictated separately.~Patient seen individually. Discussed the patient with Nursing staff reviewed the chart.~Reviewed interim history and current functioning. Reviewed vital signs,~Labs/ Radiology~and current medications noted below. Continue current treatment with the changes noted in the dictated addendum note Assessment: Vital Signs: Vital Signs Date Time Temp Pulse Resp B/P (MAP) Pulse Ox O2 Delivery O2 Flow Rate FiO2 10/17/16 16:38 97.9 81 20 134/71 (92) 96 10/16/16 15:33 Room Air I&O Intake and Output 10/17/16 06:59 Intake Total 1080 ml Balance 1080 ml Intake Oral 1080 ml Labs: Laboratory Tests Test 10/17/16 07:11 Glucose (Fingerstick) 104 mg/dL (70-99) H Current Medications: Meds: Current Medications Acetaminophen (Tylenol) 650 mg PRN Q6HRS PRN PO PAIN / TEMP; Start 10/01/16 at 17:00 Multi-Ingredient Ointment (Analgesic [place]) 1 allison PRN QID PRN TP MUSCLE PAIN; Start 10/01/16 at 17:00 Al Hydroxide/Mg Hydroxide (Mylanta Plus Xs) 15 ml PRN AFTMEALHC PRN PO DYSPEPSIA; Start 10/01/16 at 17:00 Magnesium Hydroxide (Milk Of Magnesia) 2,400 mg PRN QHS PRN PO CONSTIPATION; Start 10/01/16 at 17:00 Donepezil HCl (Aricept) 2.5 mg HS PO ; Start 10/01/16 at 21:00; Stop 10/01/16 at 21:00; Status DC Mirtazapine (Remeron) 15 mg HS PO Last administered on 10/16/16 19:37; Start 10/01/16 at 21:00 Quetiapine Fumarate (SEROquel) 12.5 mg DAILY PO Last administered on 10/10/16 07:28; Start 10/02/16 at 09:00; Stop 10/11/16 at 00:35; Status DC Sertraline HCl (Zoloft) 50 mg DAILY PO Last administered on 10/17/16 07:53; Start 10/02/16 at 09:00 Memantine (Namenda) 5 mg DAILY PO Last administered on 10/04/16 08:51; Start 10/02/16 at 09:00; Stop 10/05/16 at 08:59; Status DC Memantine (Namenda) 5 mg BID PO Last administered on 10/06/16 21:21; Start at 21:00; Stop 10/06/16 at 21:00; Status DC Donepezil HCl (Aricept) 10 mg DAILY PO Last administered on 10/17/16 07:54; Start 10/02/16 at 09:00 Olanzapine (ZyPREXA ZYDIS) 2.5 mg PRN Q2HR PRN PO PSYCHOSIS Last administered on 10/10/16 07:29; Start 10/01/16 at 18:45 Simvastatin (Zocor) 20 mg HS PO Last administered on 10/13/16 20:04; Start 02/06 at 21:00; Stop 10/14/16 at 11:40; Status DC Non-Formulary Medication 1 tab DAILY PO ; Start 10/02/16 at 09:00; Status UNV Pantoprazole Sodium (Protonix) 40 mg DAILYAC PO Last administered on 10/17/16 07:53; Start 10/02/16 at 07:30 Linagliptin (Tradjenta) 5 mg DAILY PO Last administered on 10/17/16 07:53; Start 10/02/16 at 09:00 Triamcinolone Acetonide (Kenalog) 1 allison PRN DAILY PRN TP small amt to ears; Start 10/02/16 at 09:00 Non-Formulary Medication 1 tab DAILY .ROUTE ; Start 10/02/16 at 09:00; Status UNV Lisinopril (Prinivil) 20 mg DAILY PO Last administered on 10/17/16 07:54; Start 10/02/16 at 09:00 Hydrochlorothiazide (Microzide) 12.5 mg DAILY PO Last administered on 07:53; Start 10/02/16 at 09:00 Carbamide Peroxide (Debrox) 5 drop BID AU Last administered on 10/11/16 08:17 ; Start 10/04/16 at 21:00; Stop 10/12/16 at 10:50; Status DC Memantine (Namenda) 5 mg DAILY PO Last administered on 10/09/16 07:31; Start 10/07/16 at 09:00; Stop 10/10/16 at 08:59; Status DC Memantine (Namenda) 10 mg DAILY PO Last administered on 10/17/16 07:54; Start 10/10/16 at 09:00 Vitamin D (Vitamin D3) 50,000 unit WEEKLY PO Last administered on 10/14/16 08: 11; Start 10/07/16 at 17:00 Quetiapine Fumarate (SEROquel) 12.5 mg NOON PO ; Start 10/11/16 at 12:00; Stop 10/11/16 at 12:00; Status DC Quetiapine Fumarate (SEROquel) 12.5 mg BID@0900,1200 PO Last administered on 11:41; Start 10/11/16 at 09:00; Stop 10/11/16 at 18:37; Status DC Quetiapine Fumarate (SEROquel) 12.5 mg NOON PO Last administered on 10/17/16 11:45; Start 10/12/16 at 12:00 Quetiapine Fumarate (SEROquel) 25 mg BID PO Last administered on 10/17/16 07: 53; Start 10/11/16 at 21:00 Trazodone HCl (Desyrel) 50 mg PRN QHS PRN PO INSOMNIA Last administered on 10/14 21:32; Start 10/12/16 at 19:00 Atorvastatin Calcium (Lipitor) 20 mg QHS PO ; Start 10/14/16 at 21:00; Stop at 21:00; Status DC Simvastatin (Zocor) 40 mg HS PO Last administered on 10/16/16 19:37; Start at 21:00 Trazodone HCl (Desyrel) 50 mg QHS PO Last administered on 10/16/16 19:37; Start 10/14/16 at 21:00 Artificial Tears (Artificial Tears) 1 drop PRN Q15MIN PRN OU DRY EYE; Start at 13:30 Active Scripts Active Reported Seroquel (Quetiapine Fumarate) 25 Mg Tablet 12.5 Mg PO DAILY [Hycomine compound] 1 Tab DAILY Kenalog (Triamcinolone Acetonide) 100 Gm Aerosol 1 Allison TP PRN DAILY PRN Januvia (Sitagliptin Phosphate) 100 Mg Tablet 100 Mg PO DAILY Zocor (Simvastatin) 20 Mg Tablet 20 Mg PO HS Zoloft (Sertraline Hcl) 50 Mg Tablet 50 Mg PO DAILY Quetiapine Fumarate 25 Mg Tablet 25 Mg PO HS Omeprazole 40 Mg Capsule.dr 40 Mg PO DAILY Mirtazapine 15 Mg Tablet 15 Mg PO HS Donepezil Hcl 5 Mg Tablet 2.5 Mg PO HS Benazepril-Hctz 20-12.5 Mg Tab (Benazepril/Hydrochlorothiazide) 1 Each Tablet 1 Tab PO DAILY Diagnosis: Problems: (1) Dementia with behavioral disturbance (2) Anxiety disorder (3) Dementia, vascular, with delusions (4) Dementia, vascular, with depression (5) Dementia in Alzheimer's disease with delusions (6) Dementia in Alzheimer's disease with depression (7) Impulse control disorder PATRICK VELAZQUEZ MD Oct 17, 2016 19:39
[2016-10-17] MEDS: traZODone 50 MG TABLET. PO SCH (20:38)
[2016-10-17] MEDS: SIMVASTATIN 20 MG TABLET PO SCH (20:38)
[2016-10-17] MEDS: MIRTAZAPINE 15 MG TABLET PO SCH (20:39)
[2016-10-18 05:57] VITALS: BP 128/73
[2016-10-18] MEDS: SERTRALINE 50 MG TABLET. PO SCH (08:18)
[2016-10-18] MEDS: QUEtiapine 25 MG TABLET. PO SCH ×3 (08:18→19:55)
[2016-10-18] MEDS: MEMANTINE 10 MG TABLET. PO SCH (08:18)
[2016-10-18] MEDS: LINAGLIPTIN 5 MG TABLET PO SCH (08:19)
[2016-10-18] MEDS: hydroCHLOROthiazide 12.5 MG CAPSULE PO SCH (08:19)
[2016-10-18] MEDS: DONEPEZIL HCL 10 MG TABLET PO SCH (08:19)
[2016-10-18] MEDS: PANTOPRAZOLE 40 MG TABLET. PO SCH (08:19)
[2016-10-18] MEDS: LISINOPRIL 20 MG TABLET PO SCH (08:20)
[2016-10-18 15:47] VITALS: BP 123/76
--- NOTE | 2016-10-18 19:47 | PDOC ---
Exam Pradip Demential Exam: Pradip Note: Please also refer to the separate dictated note~for this date of service dictated separately.~Patient seen individually. Discussed the patient with Nursing staff reviewed the chart.~Reviewed interim history and current functioning. Reviewed vital signs,~Labs/ Radiology~and current medications noted below. Continue current treatment with the changes noted in the dictated addendum note Assessment: Vital Signs: Vital Signs Date Time Temp Pulse Resp B/P (MAP) Pulse Ox O2 Delivery O2 Flow Rate FiO2 10/18/16 15:47 97.5 77 18 123/76 (92) 97 10/16/16 15:33 Room Air I&O Intake and Output 10/18/16 07:00 Intake Total 1140 ml Balance 1140 ml Intake Oral 1140 ml # Voids 1 # Bowel Movements 1 Labs: Laboratory Tests Test 10/18/16 07:25 Glucose (Fingerstick) 99 mg/dL (70-99) Current Medications: Meds: Current Medications Acetaminophen (Tylenol) 650 mg PRN Q6HRS PRN PO PAIN / TEMP; Start 10/01/16 at 17:00 Multi-Ingredient Ointment (Analgesic [place]) 1 allison PRN QID PRN TP MUSCLE PAIN; Start 10/01/16 at 17:00 Al Hydroxide/Mg Hydroxide (Mylanta Plus Xs) 15 ml PRN AFTMEALHC PRN PO DYSPEPSIA; Start 10/01/16 at 17:00 Magnesium Hydroxide (Milk Of Magnesia) 2,400 mg PRN QHS PRN PO CONSTIPATION; Start 10/01/16 at 17:00 Donepezil HCl (Aricept) 2.5 mg HS PO ; Start 10/01/16 at 21:00; Stop 10/01/16 at 21:00; Status DC Mirtazapine (Remeron) 15 mg HS PO Last administered on 10/17/16 20:39; Start 10/01/16 at 21:00 Quetiapine Fumarate (SEROquel) 12.5 mg DAILY PO Last administered on 10/10/16 07:28; Start 10/02/16 at 09:00; Stop 10/11/16 at 00:35; Status DC Sertraline HCl (Zoloft) 50 mg DAILY PO Last administered on 10/18/16 08:18; Start 10/02/16 at 09:00 Memantine (Namenda) 5 mg DAILY PO Last administered on 10/04/16 08:51; Start 10/02/16 at 09:00; Stop 10/05/16 at 08:59; Status DC Memantine (Namenda) 5 mg BID PO Last administered on 10/06/16 21:21; Start at 21:00; Stop 10/06/16 at 21:00; Status DC Donepezil HCl (Aricept) 10 mg DAILY PO Last administered on 10/18/16 08:19; Start 10/02/16 at 09:00 Olanzapine (ZyPREXA ZYDIS) 2.5 mg PRN Q2HR PRN PO PSYCHOSIS Last administered on 10/10/16 07:29; Start 10/01/16 at 18:45 Simvastatin (Zocor) 20 mg HS PO Last administered on 10/13/16 20:04; Start 02/06 at 21:00; Stop 10/14/16 at 11:40; Status DC Non-Formulary Medication 1 tab DAILY PO ; Start 10/02/16 at 09:00; Status UNV Pantoprazole Sodium (Protonix) 40 mg DAILYAC PO Last administered on 10/18/16 08:19; Start 10/02/16 at 07:30 Linagliptin (Tradjenta) 5 mg DAILY PO Last administered on 10/18/16 08:19; Start 10/02/16 at 09:00 Triamcinolone Acetonide (Kenalog) 1 allison PRN DAILY PRN TP small amt to ears; Start 10/02/16 at 09:00 Non-Formulary Medication 1 tab DAILY .ROUTE ; Start 10/02/16 at 09:00; Status UNV Lisinopril (Prinivil) 20 mg DAILY PO Last administered on 10/18/16 08:20; Start 10/02/16 at 09:00 Hydrochlorothiazide (Microzide) 12.5 mg DAILY PO Last administered on 08:19; Start 10/02/16 at 09:00 Carbamide Peroxide (Debrox) 5 drop BID AU Last administered on 10/11/16 08:17 ; Start 10/04/16 at 21:00; Stop 10/12/16 at 10:50; Status DC Memantine (Namenda) 5 mg DAILY PO Last administered on 10/09/16 07:31; Start 10/07/16 at 09:00; Stop 10/10/16 at 08:59; Status DC Memantine (Namenda) 10 mg DAILY PO Last administered on 10/18/16 08:18; Start 10/10/16 at 09:00 Vitamin D (Vitamin D3) 50,000 unit WEEKLY PO Last administered on 10/14/16 08: 11; Start 10/07/16 at 17:00 Quetiapine Fumarate (SEROquel) 12.5 mg NOON PO ; Start 10/11/16 at 12:00; Stop 10/11/16 at 12:00; Status DC Quetiapine Fumarate (SEROquel) 12.5 mg BID@0900,1200 PO Last administered on 11:41; Start 10/11/16 at 09:00; Stop 10/11/16 at 18:37; Status DC Quetiapine Fumarate (SEROquel) 12.5 mg NOON PO Last administered on 10/18/16 11:51; Start 10/12/16 at 12:00 Quetiapine Fumarate (SEROquel) 25 mg BID PO Last administered on 10/18/16 08: 18; Start 10/11/16 at 21:00 Trazodone HCl (Desyrel) 50 mg PRN QHS PRN PO INSOMNIA Last administered on 10/14 21:32; Start 10/12/16 at 19:00 Atorvastatin Calcium (Lipitor) 20 mg QHS PO ; Start 10/14/16 at 21:00; Stop at 21:00; Status DC Simvastatin (Zocor) 40 mg HS PO Last administered on 10/17/16 20:38; Start at 21:00 Trazodone HCl (Desyrel) 50 mg QHS PO Last administered on 10/17/16 20:38; Start 10/14/16 at 21:00 Artificial Tears (Artificial Tears) 1 drop PRN Q15MIN PRN OU DRY EYE; Start at 13:30 Active Scripts Active Reported Seroquel (Quetiapine Fumarate) 25 Mg Tablet 12.5 Mg PO DAILY [Hycomine compound] 1 Tab DAILY Kenalog (Triamcinolone Acetonide) 100 Gm Aerosol 1 Allison TP PRN DAILY PRN Januvia (Sitagliptin Phosphate) 100 Mg Tablet 100 Mg PO DAILY Zocor (Simvastatin) 20 Mg Tablet 20 Mg PO HS Zoloft (Sertraline Hcl) 50 Mg Tablet 50 Mg PO DAILY Quetiapine Fumarate 25 Mg Tablet 25 Mg PO HS Omeprazole 40 Mg Capsule.dr 40 Mg PO DAILY Mirtazapine 15 Mg Tablet 15 Mg PO HS Donepezil Hcl 5 Mg Tablet 2.5 Mg PO HS Benazepril-Hctz 20-12.5 Mg Tab (Benazepril/Hydrochlorothiazide) 1 Each Tablet 1 Tab PO DAILY Diagnosis: Problems: (1) Dementia with behavioral disturbance (2) Anxiety disorder (3) Dementia, vascular, with delusions (4) Dementia, vascular, with depression (5) Dementia in Alzheimer's disease with delusions (6) Dementia in Alzheimer's disease with depression (7) Impulse control disorder PATRICK VELAZQUEZ MD Oct 18, 2016 19:47
[2016-10-18] MEDS: traZODone 50 MG TABLET. PO SCH (19:55)
[2016-10-18] MEDS: MIRTAZAPINE 15 MG TABLET PO SCH (19:56)
[2016-10-18] MEDS: SIMVASTATIN 20 MG TABLET PO SCH (19:56)
[2016-10-19] MEDS ORDERED: ACET325T9 PO (01:18)
[2016-10-19] MEDS ORDERED: DONE10TA61 PO (01:20)
[2016-10-19] MEDS ORDERED: MAGN400O7 PO (01:23)
[2016-10-19] MEDS ORDERED: MAG30ORA2 PO (01:23)
[2016-10-19] MEDS ORDERED: MEMA10TA PO (01:24)
[2016-10-19] MEDS ORDERED: METH29OI TP (01:42)
[2016-10-19] MEDS ORDERED: OLAN5TAB5 PO (01:46)
[2016-10-19] MEDS ORDERED: DEXT15DR5 OU (01:48)
[2016-10-19] MEDS ORDERED: SIMV40TA PO (01:53)
[2016-10-19] MEDS ORDERED: TRIA15CR50 TP (01:55)
[2016-10-19] MEDS ORDERED: TRAZ50TA15 PO ×2 (01:57→01:58)
--- NOTE | 2016-10-19 08:05 | PN ---
DATE: 10/17/2016 PSYCHIATRIC PROGRESS NOTE This is a late entry for 10/17/2016, covers elements not covered in my initial note of 10/17/2016. SUBJECTIVE: I met with the patient the evening of 10/17/2016. She remains confused, forgetful, anxious, but in fact short term memory is a little better than before. She remembered my name again. REVIEW OF SYSTEMS: No CV, , pulmonary, eye, ENT system symptoms on review. She is fixated on wanting to know her discharge date and I processed this with her. MENTAL STATUS EXAM: Oriented to herself. Insight, judgment, recent memory is impaired. Language function intact. Attention span short. Mood and affect still anxious, labile, but better than before. LABORATORY DATA: Reviewed. IMPRESSION: Unchanged from initial note. PLAN: Continue current psychotropics. Reviewed drug interactions. Risk/benefit ratio favors no further change as of now. PATRICK VELAZQUEZ MD DR: VIRGINIE/madeleine JOB#: [id number] / [id number]
[2016-10-19] MEDS: DONEPEZIL HCL 10 MG TABLET PO SCH (08:40)
[2016-10-19] MEDS: SERTRALINE 50 MG TABLET. PO SCH (08:40)
[2016-10-19 08:41] VITALS: BP 157/86
[2016-10-19] MEDS: MEMANTINE 10 MG TABLET. PO SCH (08:41)
[2016-10-19] MEDS: PANTOPRAZOLE 40 MG TABLET. PO SCH (08:41)
[2016-10-19] MEDS: LINAGLIPTIN 5 MG TABLET PO SCH (08:41)
[2016-10-19] MEDS: hydroCHLOROthiazide 12.5 MG CAPSULE PO SCH (08:41)
[2016-10-19] MEDS: QUEtiapine 25 MG TABLET. PO SCH (08:41)
[2016-10-19] MEDS: LISINOPRIL 20 MG TABLET PO SCH (08:41)
--- NOTE | 2016-10-19 19:39 | PDOC ---
Exam Pradip Demential Exam: Pradip Note: Please also refer to the separate dictated note~for this date of service dictated separately.~Patient seen individually. Discussed the patient with Nursing staff reviewed the chart.~Reviewed interim history and current functioning. Reviewed vital signs,~Labs/ Radiology~and current medications noted below. Continue current treatment with the changes noted in the dictated addendum note Assessment: Vital Signs: Vital Signs Date Time Temp Pulse Resp B/P (MAP) Pulse Ox O2 Delivery O2 Flow Rate FiO2 10/19/16 08:41 74 157/86 10/18/16 15:47 97.5 18 97 10/16/16 15:33 Room Air I&O Intake and Output 10/20/16 07:00 Intake Total 600 ml Balance 600 ml Intake Oral 600 ml Labs: Laboratory Tests Test 10/19/16 07:41 10/19/16 11:10 Glucose (Fingerstick) 81 mg/dL (70-99) 74 mg/dL (70-99) Current Medications: Meds: Current Medications Acetaminophen (Tylenol) 650 mg PRN Q6HRS PRN PO PAIN / TEMP; Start 10/01/16 at 17:00; Stop 10/19/16 at 17:38; Status DC Multi-Ingredient Ointment (Analgesic [place]) 1 allison PRN QID PRN TP MUSCLE PAIN; Start 10/01/16 at 17:00; Stop 10/19/16 at 17:38; Status DC Al Hydroxide/Mg Hydroxide (Mylanta Plus Xs) 15 ml PRN AFTMEALHC PRN PO DYSPEPSIA; Start 10/01/16 at 17:00; Stop 10/19/16 at 17:38; Status DC Magnesium Hydroxide (Milk Of Magnesia) 2,400 mg PRN QHS PRN PO CONSTIPATION; Start 10/01/16 at 17:00; Stop 10/19/16 at 17:38; Status DC Donepezil HCl (Aricept) 2.5 mg HS PO ; Start 10/01/16 at 21:00; Stop 10/01/16 at 21:00; Status DC Mirtazapine (Remeron) 15 mg HS PO Last administered on 10/18/16t 19:56; Start 10/01/16 at 21:00; Stop 10/19/16 at 17:38; Status DC Quetiapine Fumarate (SEROquel) 12.5 mg DAILY PO Last administered on 10/10/16 07:28; Start 10/02/16 at 09:00; Stop 10/11/16 at 00:35; Status DC Sertraline HCl (Zoloft) 50 mg DAILY PO Last administered on 10/19/16 08:40; Start 10/02/16 at 09:00; Stop 10/19/16 at 17:38; Status DC Memantine (Namenda) 5 mg DAILY PO Last administered on 10/04/16 08:51; Start 10/02/16 at 09:00; Stop 10/05/16 at 08:59; Status DC Memantine (Namenda) 5 mg BID PO Last administered on 10/06/16 21:21; Start at 21:00; Stop 10/06/16 at 21:00; Status DC Donepezil HCl (Aricept) 10 mg DAILY PO Last administered on 10/19/16 08:40; Start 10/02/16 at 09:00; Stop 10/19/16 at 17:38; Status DC Olanzapine (ZyPREXA ZYDIS) 2.5 mg PRN Q2HR PRN PO PSYCHOSIS Last administered on 10/10/16 07:29; Start 10/01/16 at 18:45; Stop 10/19/16 at 17:38; Status DC Simvastatin (Zocor) 20 mg HS PO Last administered on 10/13/16 20:04; Start 02/06 at 21:00; Stop 10/14/16 at 11:40; Status DC Non-Formulary Medication 1 tab DAILY PO ; Start 10/02/16 at 09:00; Status UNV Pantoprazole Sodium (Protonix) 40 mg DAILYAC PO Last administered on 10/19/16 08:41; Start 10/02/16 at 07:30; Stop 10/19/16 at 17:38; Status DC Linagliptin (Tradjenta) 5 mg DAILY PO Last administered on 10/19/16 08:41; Start 10/02/16 at 09:00; Stop 10/19/16 at 17:38; Status DC Triamcinolone Acetonide (Kenalog) 1 allison PRN DAILY PRN TP small amt to ears; Start 10/02/16 at 09:00; Stop 10/19/16 at 17:38; Status DC Non-Formulary Medication 1 tab DAILY .ROUTE ; Start 10/02/16 at 09:00; Status UNV Lisinopril (Prinivil) 20 mg DAILY PO Last administered on 10/19/16 08:41; Start 10/02/16 at 09:00; Stop 10/19/16 at 17:38; Status DC Hydrochlorothiazide (Microzide) 12.5 mg DAILY PO Last administered on 08:41; Start 10/02/16 at 09:00; Stop 10/19/16 at 17:38; Status DC Carbamide Peroxide (Debrox) 5 drop BID AU Last administered on 10/11/16 08:17 ; Start 10/04/16 at 21:00; Stop 10/12/16 at 10:50; Status DC Memantine (Namenda) 5 mg DAILY PO Last administered on 10/09/16 07:31; Start 10/07/16 at 09:00; Stop 10/10/16 at 08:59; Status DC Memantine (Namenda) 10 mg DAILY PO Last administered on 10/19/16 08:41; Start 10/10/16 at 09:00; Stop 10/19/16 at 17:38; Status DC Vitamin D (Vitamin D3) 50,000 unit WEEKLY PO Last administered on 10/14/16 08: 11; Start 10/07/16 at 17:00; Stop 10/19/16 at 17:38; Status DC Quetiapine Fumarate (SEROquel) 12.5 mg NOON PO ; Start 10/11/16 at 12:00; Stop 10/11/16 at 12:00; Status DC Quetiapine Fumarate (SEROquel) 12.5 mg BID@0900,1200 PO Last administered on 11:41; Start 10/11/16 at 09:00; Stop 10/11/16 at 18:37; Status DC Quetiapine Fumarate (SEROquel) 12.5 mg NOON PO Last administered on 10/18/16 11:51; Start 10/12/16 at 12:00; Stop 10/19/16 at 17:38; Status DC Quetiapine Fumarate (SEROquel) 25 mg BID PO Last administered on 10/19/16 08: 41; Start 10/11/16 at 21:00; Stop 10/19/16 at 17:38; Status DC Trazodone HCl (Desyrel) 50 mg PRN QHS PRN PO INSOMNIA Last administered on 10/14 21:32; Start 10/12/16 at 19:00; Stop 10/19/16 at 17:38; Status DC Atorvastatin Calcium (Lipitor) 20 mg QHS PO ; Start 10/14/16 at 21:00; Stop at 21:00; Status DC Simvastatin (Zocor) 40 mg HS PO Last administered on 10/18/16 19:56; Start at 21:00; Stop 10/19/16 at 17:38; Status DC Trazodone HCl (Desyrel) 50 mg QHS PO Last administered on 10/18/16 19:55; Start 10/14/16 at 21:00; Stop 10/19/16 at 17:38; Status DC Artificial Tears (Artificial Tears) 1 drop PRN Q15MIN PRN OU DRY EYE; Start at 13:30; Stop 10/19/16 at 17:38; Status DC Active Scripts Active Reported Trazodone Hcl 50 Mg Tablet 50 Mg PO PRN QHS PRN Trazodone Hcl 50 Mg Tablet 50 Mg PO QHS Triamcinolone Acetonide 15 Gm Cream..g. 1 Allison TP PRN DAILY PRN Zocor (Simvastatin) 40 Mg Tablet 40 Mg PO HS Artificial Tears Eye Drops (Dextran 70/Hypromellose) 15 Ml Drops 1 Drop OU PRN Q15MIN PRN Zyprexa Zydis (Olanzapine) 5 Mg Tab.rapdis 2.5 Mg PO PRN Q2HR PRN MDD 7.5mg Analgesic [place] (Methyl Salicylate/Menthol) 28 Gm Oint...g. 1 Gm TP PRN QID PRN Namenda (Memantine Hcl) 10 Mg Tablet 10 Mg PO DAILY Milk Of Magnesia (Magnesium Hydroxide) 400 Mg/5 Ml Oral.susp 2,400 Mg PO PRN QHS PRN Mag-Al Plus Xs Suspension (Mag Hydrox/Al Hydrox/Simeth) 30 Ml Oral.susp 15 Ml PO PRN AFTMEALHC PRN Aricept (Donepezil Hcl) 10 Mg Tablet 10 Mg PO DAILY Vitamin D3 (Cholecalciferol (Vitamin D3)) 50,000 Unit Capsule 50,000 Unit PO WEEKLY Tylenol (Acetaminophen) 325 Mg Tablet 650 Mg PO PRN Q6HRS PRN MDD 4000mg Seroquel (Quetiapine Fumarate) 25 Mg Tablet 12.5 Mg PO DAILY@1200 Januvia (Sitagliptin Phosphate) 100 Mg Tablet 100 Mg PO DAILY Zoloft (Sertraline Hcl) 50 Mg Tablet 50 Mg PO DAILY Quetiapine Fumarate 25 Mg Tablet 25 Mg PO BID Omeprazole 40 Mg Capsule.dr 40 Mg PO DAILY Mirtazapine 15 Mg Tablet 15 Mg PO QHS Benazepril-Hctz 20-12.5 Mg Tab (Benazepril/Hydrochlorothiazide) 1 Each Tablet 1 Tab PO DAILY Diagnosis: Problems: (1) Anxiety disorder (2) Dementia, vascular, with delusions (3) Dementia, vascular, with depression (4) 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
--- NOTE | 2016-10-20 01:41 | PN ---
DATE: 10/18/2016 This late entry 10/18/2016 covers elements not covered in my initial note of 10/18/2016. I met with the patient on the evening of 10/18/2016. She remains confused, forgetful, otherwise pleasant, cooperative, smiling as I met with her, calmer. REVIEW OF SYSTEMS: No CV, , pulmonary, eye, ENT system symptoms on review. Reliability poor. MENTAL STATUS EXAM: Oriented to herself. Insight, judgment, recent memory is impaired. Language function intact. Attention span short. Mood and affect showing improvement. LABORATORY DATA: Reviewed. IMPRESSION: Unchanged from initial note. PLAN: Continue current psychotropics mentioned in my initial note. Adjust further as clinically indicated. Transition to [facility] later this week. MAN Rae VELAZQUEZ MD DR: VIRGINIE/madeleine JOB#: [id number] / [id number]
--- NOTE | 2016-10-20 20:53 | DS ---
DATE OF DISCHARGE: 10/19/2016 DISCHARGE SUMMARY/PSYCHIATRIC PROGRESS NOTE This is a late entry for 10/19/2016, covers elements not covered in my initial note of 10/19/2016. REASON FOR ADMISSION: Please refer to the admission history for details. Briefly, the patient is a 70-year-old black female initially referred to us on account of increasing confusion, verbal aggression, snatching and scratching at daughter. She believes her moves her purse around in the home where she lives. This is amongst many other delusions and misperceptions, which have increased her agitation as her memory deficits have progressed recently. She has had sleep and appetite changes. Behaviors were deemed dangerous to herself and others. She had failed outpatient psychiatric interventions resulting in this referral for inpatient stabilization. SIGNIFICANT FINDINGS AND CLINICAL COURSE: Following admission, the patient was seen daily individually by myself, followed medically per Dr. Ryan/Dr. Villarreal. She was quite confused, forgetful, did not remember my visits even though I met with her every day, 7 days a week. Towards the latter part of the hospitalization, in fact she would remember my name and would remember some details of her prior visit the previous day, which in itself was an improvement. Adjustments were made in her psychotropics and she seemed to respond to a combination of Aricept 10 mg a day, Namenda 10 mg daily with a plan to increase it further to 10 mg twice a day, Remeron 15 mg at bedtime, Zoloft 50 mg daily, Seroquel 12.5 mg at noon and 25 mg b.i.d., Zyprexa p.r.n., trazodone 50 mg at bedtime, may repeat x 1 p.r.n. for insomnia. REVIEW OF SYSTEMS: Prior to discharge on 10/19/2016, no CV, , eye, ENT or pulmonary system symptoms on review. Reliability varies. MENTAL STATUS EXAM: Oriented to herself and at times to situation. Speech coherent, less pressured. Abstraction fair, computation impaired, language function intact, attention span short. Mood and affect improved, more verbal, open, less paranoid, less anxious. LABORATORY DATA: Reviewed. 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 Rest unchanged from admission. DISCHARGE MEDICATIONS: Please refer to the [facility]. DISCHARGE INSTRUCTIONS: Outpatient psychiatric and medical followup at the [facility]. Time for discharge day management greater than 30 minutes. PATRICK VELAZQUEZ MD DR: VIRGINIE/madeleine JOB#: [id number] / [id number]
== END 2016-10-19 13:20 | DRG 884 ==
LOC: ER 14:19 → OBSVTOIN 16:22 → GEROPSY 16:22
PROVIDERS: ADMIT Psychiatry & Neurology Psychiatry; ATTEND Psychiatry & Neurology Psychiatry
DX: F01.51 Vascular dementia, unspecified severity, with behavioral disturbance (principal); E11.9 Type 2 diabetes mellitus without complications; F02.81 Dementia in other diseases classified elsewhere, unspecified severity, with behavioral disturbance; G30.0 Alzheimer's disease with early onset; I10 Essential (primary) hypertension; E78.5 Hyperlipidemia, unspecified; F32.9 Major depressive disorder, single episode, unspecified; F41.9 Anxiety disorder, unspecified; F63.9 Impulse disorder, unspecified; F22 Delusional disorders; Z91.81 History of falling
CPT/HCPCS: 36415; 70450; 80053; 80061; 81001; 82306; 82607; 82947; 83036; 83540; 83550; 83735; 84436; 84443; 84480; 85025; 85027; 86592; 86593; 93005